=== PATIENT | female | born 1990 | race Caucasian/White ===

== ENCOUNTER → 2017-05-18 15:54 | Outpatient (CLI) | payer OTHER, SELFPAY ==
[2017-05-21 14:11] LABS: HPV Reflexed? NOT INDICATED
== END ==
PROVIDERS: Family Provider Family Medicine; PCP Family Medicine; Visit Provider Obstetrics & Gynecology
DX: Z12.4 Encounter for screening for malignant neoplasm of cervix (principal)
CPT/HCPCS: 88175; G0145

== ENCOUNTER 2017-12-15 00:30 | Emergency (ER) | payer OTHER, SELFPAY ==
[2017-12-15 00:33] VITALS: BP 135/94; PULSE 127; RESP 18; TEMP 36.7; O2SAT 99; BMI 34.7
--- NOTE | 2017-12-15 00:43 | RAD_ITS ---
STUDY: X-RAY - LEFT ANKLE REASON FOR EXAM: Female, 27 years old. Left ankle pain status post fall TECHNIQUE: 3 view(s) of the ankle. COMPARISON: None. FINDINGS: There is a fracture through the medial malleolus with minimal distraction of the fracture fragment. There is also a fracture of the distal fibular diaphysis with minimal posterior displacement and anterior angulation of the distal fracture fragment. Normal medial and lateral malleoli. Normal tibiotalar articulation and ankle mortise. Normal visualized talus and calcaneus. The visualized subtalar, talonavicular, calcaneocuboid and tarsal articulations are normal. The soft tissue structures are unremarkable. RAD/Ankle min 3 Views IMPRESSION: Fractures involving the medial malleolus and the distal fibular diaphysis with surrounding soft tissue swelling. Electronically Signed: Luis Miguel Villareal MD at 2:19 EDT Tel , Service support ,
--- NOTE | 2017-12-15 00:47 | ED.DCSUM_ITS ---
- ER Visit Summary Date of Service: 12/15/17 Chief Complaint: Left ankle injury History of Present Illness: The patient is a 27 F who fell from a barstool and rolled her left ankle approximately hour prior to arrival. Patient states she has not been able to weight-bear since that time. She denies any other injury from the fall. Physical Examination: Vital signs in triage significant only for tachycardia with a heart rate of 127. Patient sitting upright in bed no acute distress. Head neck examination reveals no sign of acute trauma. Heart is regular. Lung sounds clear. Abdomen is soft nontender. Lower external examination reveals tenderness palpation over the lateral malleolus of the left ankle with mild to moderate edema. There is no tenderness over the foot itself. There is no tenderness of the proximal fibula. She has strong distal pulses and good sensation. Test Results: Left ankle x-rays reveal a bimalleolar ankle fracture with mild widening of the medial mortise per my read. Emergency Department Course and Treatment: Patient was initially given Naprosyn and an ice pack. She was placed in a posterior and stirrup Ortho-Glass splint. She will be written for oxycodone and given crutches. She is to remain nonweightbearing and follow-up with orthopedics as soon as possible. Treatment Plan: [] Disposition: Discharge Impression: Left ankle fracture This note was generated with [employer] dictation software. It may contain incorrect words, spelling, and punctuation that were not noted in review of the chart prior to signing ED Disposition - Plan for ED Patient: Chief Complaint: Lower Extremity Injury Referrals: Denis Staples MD [Primary Care Provider] -
[2017-12-15] MEDS: Naproxen 500 MG Tablet PO (00:49)
[2017-12-15] MEDS: oxyCODONE 5 MG Tablet PO ×2 (01:15→01:23)
--- NOTE | 2017-12-15 01:16 | ED.DEP ---
ED Disposition - Plan for ED Patient: Disposition: Home or Assisted Living Chief Complaint: Lower Extremity Injury Instructions: ED Fx Ankle General Prescriptions: Oxycodone HCl/Acetaminophen [Percocet 5/325] 1 tablet PO Q6H PRN PRN 5 Days #20 tablet PRN Reason: Pain Referrals: Ced Robertson MD [STAFF PHYSICIAN] - As soon as possible
== END 2017-12-15 01:25 | disposition home or self-care (01) ==
PROVIDERS: Emergency Provider Emergency Medicine; Family Provider Family Medicine; PCP Family Medicine
DX: S82.842A Displaced bimalleolar fracture of left lower leg, initial encounter for closed fracture (principal); W08.XXXA Fall from other furniture, initial encounter; Y93.9 Activity, unspecified; Y92.89 Other specified places as the place of occurrence of the external cause; Y99.9 Unspecified external cause status
CPT/HCPCS: 29515; 73610; 99284

== ENCOUNTER 2017-12-24 22:19 | Observation (INO) | payer OTHER, SELFPAY ==
[2017-12-24] VITALS (17 sets, daily range): BP systolic 116–147; BP diastolic 54–82; PULSE 106–167; RESP 16–20; TEMP 36.8–38.5; O2SAT 95–99; BMI 35.4; BMI 35.6
[2017-12-24 11:35] LABS: Internal QC Validated? YES +Cl - CLEAR BKGD; Pregnancy, Urine Negative Negative
[2017-12-24] MEDS: Cefazolin 2 GM in 0.9% Normal Saline 100 ML IV (16:41)
--- NOTE | 2017-12-24 17:00 | RAD_ITS ---
STUDY: X-RAY - LEFT ANKLE REASON FOR EXAM: Female, 27 years old. 5 left ankle TECHNIQUE: Single view(s) of the ankle. COMPARISON: None. FINDINGS: Single image was submitted, as radiology support for c-arm imaging in the operating room. This is not a diagnostic examination. Images for documentation purposes only. Fluoroscopy time if reported: RAD/Ankle 2 Views IMPRESSION: Intraoperative fluoroscopic image guidance. Electronically Signed: Ivy Bach MD at 23:53 EST , Service support ,
--- NOTE | 2017-12-24 20:31 | RAD_ITS ---
STUDY: X-RAY CHEST REASON FOR EXAM: Female, 27 years old. Hypoxemia. TECHNIQUE: Portable chest. COMPARISON: 08/11/2012. FINDINGS: Endotracheal tube terminates at the T2 level, 5.8 cm above the mickey. The lungs are clear and expanded. There is no demonstrated pleural abnormality. Normal size heart. Normal mediastinum and dyllan. Normal visualized pulmonary arteries. Normal visualized aortic arch and descending thoracic aorta. Normal visualized thoracic spine. Normal visualized ribs, clavicles, and shoulders. There is no demonstrated abnormality of the visualized soft tissue structures of the upper abdomen. RAD/Chest 1 View (Portable) IMPRESSION: ET tube at the T2 level. No acute process. Electronically Signed: Shell Bunn MD at 21:14 EST Tel , Service support ,
--- NOTE | 2017-12-24 21:37 | PCM.IMDPSTOP ---
Immediate Post-Op Note Date of Procedure: 12/24/17 Primary Surgeon/Physician: Kathryn Kirby DPM auto garage attendant: Kathryn Frazier Pre-Operative Diagnosis: L ankle bimalleolar fracture Post-Operative Diagnosis: same Surgery/Procedure Performed:: L ankle ORIF, L deltoid ligament repair Description of Surgical Findings:: see dictation Estimated Blood Loss: 300mL Specimen's removed: none Drains: none Type of Anesthesia:: General/Regional - Admit VTE Documentation VTE Present on Admission: No VTE Mechan Device Prophylaxis: SCD's, Knee High GERBER Hose VTE Pharm Prophylaxis ordered?: Yes
--- NOTE | 2017-12-24 21:41 | OP.PN_ITS ---
Immediate Post-Op Note Date of Procedure: 12/24/17 Primary Surgeon/Physician: Kathryn Kirby DPM retail sales director: Kathryn Frazier Pre-Operative Diagnosis: L ankle bimalleolar fracture Post-Operative Diagnosis: same Surgery/Procedure Performed:: L ankle ORIF, L deltoid ligament repair Description of Surgical Findings:: see dictation Estimated Blood Loss: 300mL Specimen's removed: none Drains: none Type of Anesthesia:: General/Regional - Admit VTE Documentation VTE Present on Admission: No VTE Mechan Device Prophylaxis: SCD's, Knee High GERBER Hose VTE Pharm Prophylaxis ordered?: Yes
--- NOTE | 2017-12-24 21:44 | DCINST_ITS ---
Discharge Activity: May Not Drive, May not drive while taking narcotic pain medications., May Not Shower, Use Crutches Ice area for (Minutes): 20 - apply ice to behind left knee for 20 minutes of each hour while awake Weight Bearing Status: No weight bearing Keep extremity elevated above heart level: Operative Extremity Call your doctor if your incision/area has: Continuous Slow Oozing, Sudden Increased Bleeding, Increased Pain/ Swelling Call your doctor if you observe: Fever of 101 or Higher, Coldness, Increased Pain, Numbness or Tingling, Shortness of breath, Dizziness, Chest pain, Increased palpitations (irregular heartbeat), Calf discomfort, Uncontrolled pain Cleanse incision/area with: Keep Dressing Clean & Dry Additional Dressing/Incision Instructions:: Keep dressing and posterior splint clean, dry and intact. Allergies/Adverse Reactions: Allergies No Known Allergies Allergy (Verified 12/22/17 11:58) Medications to take at Discharge busPIRone [Buspar] 15 mg PO TID 12/15/17 traZODone [Desyrel] 50 mg PO QHS PRN 12/15/17 Acamprosate Calcium 666 mg PO BID 12/22/17 Hydroxyzine Pamoate [Vistaril] 25 mg PO QHS 12/22/17 Primary Care Physician: Denis Staples MD [Primary Care Provider] - Please follow up with your Primary Care Physician in: 7-10 days after surgery. Test Results: Test results from this visit will be discussed in further detail at your follow- up appointment, if applicable. Please Follow Up With: Kathryn Kirby DPM When: In one week Proposed Discharge Date: 12/24/17
--- NOTE | 2017-12-24 21:50 | RAD_ITS ---
STUDY: X-RAY - LEFT ANKLE REASON FOR EXAM: Female, 27 years old. Postop ankle ORIF TECHNIQUE: 3 view(s) of the ankle. COMPARISON: 12/15/2017. FINDINGS: Internal side plating along the distal fibula spanning the fracture in anatomic alignment with 2 medial and lateral malleolar pins. Question of cortical disruption of the posterior distal tibia. Normal medial and lateral malleoli. Normal tibiotalar articulation and ankle mortise. Normal visualized talus and calcaneus. The visualized subtalar, talonavicular, calcaneocuboid and tarsal articulations are normal. The soft tissue structures are unremarkable. RAD/Ankle min 3 Views IMPRESSION: Near-anatomic alignment of possible trimalleolar fracture status post ORIF. Electronically Signed: Ivy Bach MD at 7:07 EST , Service support ,
[2017-12-24 21:56] LABS: Hematocrit 36.3 % (37-47); Hemoglobin 11.6 g/dl (12.0-15.0); Mean Corpuscular Hgb 29.6 pg (27.0-32.0); Mean Corpuscular Volume 92.6 fL (81-99); Mean Platelet Vol. 8.9 fl (6.2-12.0); Platelet Count 264 K/mm3 (150-450); RBC Distribution Width SD 43.7 fl (35.1-43.9); Red Blood Count 3.92 M/mm3 (4.2-5.4); White Blood Count 10.6 K/mm3 (4.4-11.0)
[2017-12-24 21:58] LABS: Scan Indicated on CBC? Y/N NO
--- NOTE | 2017-12-24 22:24 | EKG12_ITS ---
Test Reason : HIGH HR Blood Pressure : / mmHG Vent. Rate : 152 BPM Atrial Rate : 152 BPM P-R Int : 112 ms QRS Dur : 080 ms QT Int : 336 ms P-R-T Axes : 091 049 030 degrees QTc Int : [address] & T wave abnormality, consider inferior ischemia Abnormal ECG No previous ECGs available Reconfirmed by BRADY NOBLES ([id number]), video editor ROSANNA RAZO ([id number]) on 12/28/2017 2:46:53 PM Referred By: Kathryn Kirby Confirmed By:BRADY NOBLES
[2017-12-24] MEDS: dilTIAZem 25 MG/5 ML Vial 10 MG IV BOLUS (22:41)
--- NOTE | 2017-12-24 22:59 | PCM.HP.STD ---
Problem List (1) Sinus tachycardia Status: Acute (2) Bimalleolar fracture of left ankle Status: Acute History of Present Illness Date of Admission: 12/24/17 Chief Complaint: Sinus tachycardia during surgery and recovery room The patient is a 27 year old F with no significant past medical history was taken to elective surgery for left ankle bimalleolar fracture today. Anesthesiologist Dr. Lewis called me that patient was having sinus tachycardia, the heart rate in 150s during perioperative time and after extubation. Prior to that patient was initially on LMA and dropped pulse ox 78% for which LMA was manipulated and then later on intubated. Patient had 6 puffs of albuterol treatment, phenylephrine 1 mg and fentanyl 200 mcg, propofol and ropivacaine as an anesthetic agent. Patient also had subcutaneous epinephrine 1:1000 for surgery. Patient remains sinus tachycardia in recovery room. I ordered 10 mg IV Cardizem and still sinus tachycardia at 150/min and then decided for admission. Patient denies history of asthma, chronic lung disease or chronic heart disease. EKG shows sinus tachycardia at 152 bpm. The patient denies chest pain or shortness of breath but feels palpitation. Patient is awake and alert and currently 98% on room air. No tachypnea. [] Past Medical History Allergies No Known Allergies Allergy (Verified 12/22/17 11:58) Home Medications: Ambulatory Orders Medication Instructions Recorded busPIRone [Buspar] 15 mg PO TID 12/15/17 traZODone [Desyrel] 50 mg PO QHS PRN 12/15/17 Acamprosate Calcium 666 mg PO BID 12/22/17 Hydroxyzine Pamoate [Vistaril] 25 mg PO QHS 12/22/17 Smoking Status: Never smoker Tobacco Use: Non-smoker - *Family History Sibling History Items: No pertinent history Review of Systems Constitutional: Denies: Chills, Fever, Weight Change HEENT: Denies: Head Aches, Sinus Congestion, Sinus Drainage Cardiovascular: Reports: Palpitations. Denies: Chest Pain, Chest Pressure, Chest Tightness Respiratory: Denies: Cough, Shortness of Breath, Shortness of breath at rest, Shortness of breath upon exertion, Sputum production Gastrointestinal: Denies: Abdominal Pain, Nausea, Vomiting Genitourinary: Denies: Dysuria Musculoskeletal: Denies: Joint Pain, Joint Tenderness Skin: Denies: Rash, Wounds Neurological: Denies: Numbness, Tingling, Focal weakness Psychiatric: Denies: Anxiety, Depression, Homicidal Ideations, Suicidal Ideations Hematologic/ Lymphatic: Denies: Easy Bruising, Easy Bleeding VTE Information - Inpt Only VTE Present on Admission: No VTE Mechan Device Prophylaxis: SCD's VTE Pharm Prophylaxis ordered?: No Patient Problems: Active and Suspected Problems Sinus tachycardia (Acute) Bimalleolar fracture of left ankle (Acute) - Physical Exam General: Alert, Oriented x3, Cooperative HEENT: Atraumatic, PERRLA, EOMI, Normocephalic Neck: Supple, No JVD, Negative Carotid Bruits Lungs: Clear to auscultation, Normal air movement, No rhonchi, No wheeze, No rales Cardiovascular: Normal S1, Normal S2, No murmurs, Tachycardic Abdomen: Bowel Sounds Present, Soft, Non Tender, Non-Distended Extremities: No edema, Capillary Refill Less than 3 Seconds Skin: No rashes, No breakdown Musculoskeletal: Tenderness, - - Left ankle with Augusto wrap bandage after surgery. Neurological: Cranial nerves II-XII grossly intact Psych/Mental Status: Normal Affect, Appropriate Vital Signs Temp Pulse Resp BP Pulse Ox 98.3 F 149 H 18 121/60 H 97 12/24/17 22:43 12/24/17 22:43 12/24/17 22:43 12/24/17 22:43 12/24/17 22:43 Oxygen Flow Rate (L/min) 2 Oxygen Delivery Method Nasal Cannula Weight: 193 lb 9.054 oz Body Mass Index (BMI) 35.4 Intake and Output for Last 24 Hours 12/22/17 12/23/17 12/24/17 23:59 23:59 23:59 Intake Total 2500 / 2500 Balance 2500 / 2500 Laboratory Tests Past 24 Hrs 12/24/17 12/24/17 12/24/17 11:30 21:44 22:44 WBC 10.6 RBC 3.92 L Hgb 11.6 L Hct 36.3 L MCV 92.6 MCH 29.6 MCHC 32.0 RDW 13.0 RDW Differential 43.7 Plt Count 264 MPV 8.9 Troponin I Pending Urine Test Negative Assessment/Plan All Active Problems Sinus tachycardia (Acute) Bimalleolar fracture of left ankle (Acute) The patient is a 27 year old F with no significant past medical history was taken to elective surgery for left ankle bimalleolar fracture today. Anesthesiologist Dr. Lewis called me that patient was having sinus tachycardia, the heart rate in 150s during perioperative time and after extubation. Prior to that patient was initially on LMA and dropped pulse ox 78% for which LMA was manipulated and then later on intubated. Patient had 6 puffs of albuterol treatment, phenylephrine 1 mg and fentanyl 200 mcg, propofol and ropivacaine as an anesthetic agent. Patient also had subcutaneous epinephrine 1:1000 for surgery. Patient remains sinus tachycardia in recovery room. I ordered 10 mg IV Cardizem and still sinus tachycardia at 150/min and then decided for admission. Patient denies history of asthma, chronic lung disease or chronic heart disease. EKG shows sinus tachycardia at 152 bpm. 1. Sinus tachycardia, perioperative. Most rarely secondary to anesthetic agents (phenylephrine, albuterol and subcutaneous epinephrine): The patient is being admitted to PCU. Cardiac telemetry. 5 mg IV metoprolol ordered. Continue metoprolol 25 mg twice daily. Patient heart rate remains elevated will need IV Cardizem drip. Cycle cardiac enzymes. 2. Left ankle bimalleolar fracture: Patient had left ankle ORIF done by Dr. Kirby. She also had left deltoid ligament repair. Pain control. On SCDs. Code Visit OBSV E&M: 90276 Initial observation care L3
[2017-12-24] MEDS: Metoprolol Tartrate 5 MG/5 ML Vial IV (23:24)
[2017-12-24 23:28] LABS: ALB/GLOB Ratio 0.9 RATIO (0.9-2.4); AST(SGOT) 86 U/L (15-37); Alanine Aminotransfer ALT/SGPT 161 U/L (13-56); Albumin, Serum 3.6 g/dL (3.2-5.0); Alkaline Phosphatase 77 U/L (45-117); Anion Gap 17 (5-15); BUN 13 mg/dL (7-18); BUN/Creat Ratio 9.8 RATIO (10-20); Calcium,Total 8.2 mg/dL (8.5-10.1); Chloride 105 mmol/L (98-107); Creatinine, Serum 1.33 mg/dL (0.55-1.02); EST Glomerular Filtration Rate 50 mL/min (>60); Est Glom Filt Rate - Afr Amer 61 mL/min (>60); Estimated Creatinine Clearance 49.81 ml/min; Globulin 3.8 g/dL (2.2-4.2); Glucose 233 mg/dL (74-106); Magnesium 1.7 mg/dL (1.6-2.6); Potassium 3.2 mmol/L (3.5-5.1); Protein, Total 7.4 g/dL (6.4-8.2); Sodium Level 137 mmol/L (136-145)
[2017-12-25] VITALS (14 sets, daily range): BP systolic 109–123; BP diastolic 56–72; PULSE 91–130; RESP 16–18; TEMP 36.8–37.1; O2SAT 95–97
[2017-12-25] MEDS: 0.9% Normal Saline 1,000 ML 150 ML IV ×3 (00:02→11:53)
[2017-12-25] MEDS: hydrOXYzine PAM 25 MG Capsule PO (00:03)
[2017-12-25] MEDS: busPIRone 15 MG TABLET PO ×3 (00:03→14:40)
[2017-12-25] MEDS: Metoprolol Tartrate 50 MG Tablet PO ×2 (00:03→10:17)
[2017-12-25] MEDS: Metoprolol Tartrate 5 MG/5 ML Vial IV ×2 (00:05→00:16)
[2017-12-25] MEDS: Magnesium Oxide 400 MG Tablet PO ×2 (01:26→09:09)
[2017-12-25 01:43] LABS: Bacteria 0 SEEN /hpf (None Seen); Mucous, Urine 0 SEEN /hpf (<or=2+); Red Blood Cells-Urine 0 SEEN /hpf (0-5); White Blood Cells 0 SEEN /hpf (0-5)
[2017-12-25 01:45] LABS: Glucose, Dipstick 100 mg/dl (Normal); Ketone-Dipstick 5 mg/dl (Negative); Leukocyte Esterase-Dipstick Negative /ul (Negative); Nitrite-Dipstick Negative (Negative); Occult Blood-Urine Negative /ul (Negative); Protein-Dipstick Negative (Negative); Urine Bilirubin Dipstick Negative (Negative); Urine Urobilinogen Normal (Normal)
[2017-12-25 01:47] LABS: Color, Urine Straw (Yellow); Urine Clarity Clear (Clear)
[2017-12-25 01:50] LABS: Squamous Epithelial Cells - UA 10-25 SEEN /hpf (5-10)
[2017-12-25 03:06] LABS: Anion Gap 11 (5-15); BUN 10 mg/dL (7-18); BUN/Creat Ratio 9.2 RATIO (10-20); Calcium,Total 8.3 mg/dL (8.5-10.1); Chloride 109 mmol/L (98-107); Creatinine, Serum 1.09 mg/dL (0.55-1.02); EST Glomerular Filtration Rate 63 mL/min (>60); Est Glom Filt Rate - Afr Amer 77 mL/min (>60); Estimated Creatinine Clearance 57.98 ml/min; Glucose 186 mg/dL (74-106); Potassium 4.6 mmol/L (3.5-5.1); Sodium Level 140 mmol/L (136-145)
[2017-12-25] MEDS: oxyCODONE 5 MG Tablet 10 MG PO ×3 (03:56→14:41)
[2017-12-25 05:46] LABS: Hematocrit 34.4 % (37-47); Hemoglobin 11.2 g/dl (12.0-15.0); Mean Corp Hgb Conc 32.6 g/gl (32-36); Mean Corpuscular Hgb 29.8 pg (27.0-32.0); Mean Corpuscular Volume 91.5 fL (81-99); Mean Platelet Vol. 9.4 fl (6.2-12.0); Platelet Count 308 K/mm3 (150-450); RBC Distribution Width CV 12.6 % (11.6-14.6); RBC Distribution Width SD 41.1 fl (35.1-43.9); Red Blood Count 3.76 M/mm3 (4.2-5.4); Scan Indicated on CBC? Y/N NO; White Blood Count 13.6 K/mm3 (4.4-11.0)
[2017-12-25] MEDS: Venlafaxine XR 150 MG Capsule PO (09:09)
--- NOTE | 2017-12-25 13:19 | CT_ITS ---
STUDY: CTA CHEST REASON FOR EXAM: Female, 27 years old. Tachycardia and hypoxia. Recent surgery. RADIATION DOSAGE (If Supplied By Facility): CTDIvol = ( 16.30 ) mGy, DLP = ( 618.95 ) mGycm TECHNIQUE: The examination was performed with the intravenous administration of 75mL ml of Isovue 370 contrast material. Post-processing of the angiographic images was performed, with multiplanar reformation and 3D reconstruction. Individualized dose optimization techniques were used for this CT. COMPARISON: None. FINDINGS: Normal enhancement of the main pulmonary artery and right and left pulmonary arteries. Normal enhancement of the bilateral peripheral pulmonary arteries. There is no demonstrated pulmonary embolism. Normal thoracic aorta and visualized great vessels. There is no demonstrated aortic dissection. Normal heart and pericardium. Normal mediastinum. Normal hilar regions. Normal visualized trachea and bronchi. The lungs are well expanded. Minimal degree of bibasilar dependent atelectasis. Normal pleura. Normal chest wall structures. Normal osseous structures. Normal visualized upper abdomen. CT/CTA Chest W/WO Contrast IMPRESSION: Normal CTA chest examination, without a demonstrated pulmonary embolism or arterial dissection. Electronically Signed: Ray Church MD at 15:00 EST Tel [phone], Service support ,
--- NOTE | 2017-12-25 15:04 | DCINST_ITS ---
- Discharge Diagnoses Current Active Problems: Current Active and Chronic Problems Sinus tachycardia (Acute) Bimalleolar fracture of left ankle (Acute) You will use the following diet at home:: No restrictions Your food should be the consistency of: Regular Your liquids should be the consistency of: Regular/Thin Discharge Activity: May Not Drive, May not drive while taking narcotic pain medications., May Not Shower, Use Crutches Ice area for (Minutes): 20 - apply ice to behind left knee for 20 minutes of each hour while awake Weight Bearing Status: No weight bearing Keep extremity elevated above heart level: Operative Extremity Call your doctor if your incision/area has: Continuous Slow Oozing, Sudden Increased Bleeding, Increased Pain/ Swelling Call your doctor if you observe: Fever of 101 or Higher, Coldness, Increased Pain, Numbness or Tingling, Shortness of breath, Dizziness, Chest pain, Increased palpitations (irregular heartbeat), Calf discomfort, Uncontrolled pain Cleanse incision/area with: Keep Dressing Clean & Dry Additional Dressing/Incision Instructions:: Keep dressing and posterior splint clean, dry and intact. Allergies/Adverse Reactions: Allergies No Known Allergies Allergy (Verified 12/22/17 11:58) Medications to take at Discharge busPIRone [Buspar] 15 mg PO TID 12/15/17 traZODone [Desyrel] 50 mg PO QHS PRN 12/15/17 Acamprosate Calcium 666 mg PO BID 12/22/17 Hydroxyzine Pamoate [Vistaril] 25 mg PO QHS 12/22/17 Venlafaxine XR [Effexor Xr] 150 mg PO DAILY 12/24/17 Metoprolol Tartrate [Lopressor (beta deanna)] 50 mg PO BID #60 tablet 12/25/17 The following prescriptions were given: Metoprolol Tartrate [Lopressor (beta deanna)] 50 mg PO BID #60 tablet Primary Care Physician: Denis Staples MD [Primary Care Provider] - Please follow up with your Primary Care Physician in: 7-10 days after surgery. Test Results: Test results from this visit will be discussed in further detail at your follow- up appointment, if applicable. Please Follow Up With: Kathryn Kirby DPM When: In one week Proposed Discharge Date: 12/24/17
--- NOTE | 2017-12-25 15:09 | DS.PCM_ITS ---
Discharge Date and Diagnosis - Problem List Patient Problems: Active and Suspected Problems Sinus tachycardia (Acute) Bimalleolar fracture of left ankle (Acute) Date of Admission: 12/24/17 Date of Discharge: 12/25/17 - Primary Discharge Diagnosis Active and Suspected Problems Sinus tachycardia (Acute) Bimalleolar fracture of left ankle (Acute) Hospital Course and Treatment Imaging Results: 12/25/17 13:19 CTA Chest W/WO Contrast [CT] Urgent Operations: None Procedures: None Summary of Care Provided: The patient is a 27 year old F who underwent a left ankle ORIF for a Bimalleolar fracture. Perioperatively, she was tachycardic in 150s. She continued to be tachycardic, then the decision was made to admit the patient. In the hospital, she was started on metoprolol 50 BID. HR has improved into the 90s. Patient advised that her HR max will be limited (but she will be limited given her Left ankle surgery anyway). Advised to follow up with her PCP to seen if will need to be continued indefinitely. She did have a CTA chest that was negative for PE.[] Patient Problems: Active and Suspected Problems Sinus tachycardia (Acute) Bimalleolar fracture of left ankle (Acute) - Physical Exam General: Alert, Cooperative, No apparent distress HEENT: Atraumatic, Normocephalic Oral: Moist Mucosa, No Gingival or Mucosal Lesions/ Ulcerations Neck: No Nodes, Thyroid Normal Size and Texture Lungs: Clear to auscultation, Normal air movement, No rhonchi, No wheeze Cardiovascular: Regular rate, Regular Rhythm, Normal S1, Normal S2 Abdomen: Bowel Sounds Present, Soft, Non Tender, Non-Distended Vital Signs Temp Pulse Resp BP Pulse Ox 36.8 C 101 H 16 123/72 H 95 12/25/17 09:14 12/25/17 10:47 12/25/17 09:14 12/25/17 09:14 12/25/17 09:14 Oxygen Flow Rate (L/min) 2 Oxygen Delivery Method Room Air Weight: 87.8 kg Body Mass Index (BMI) 35.6 Intake and Output for Last 24 Hours 12/23/17 12/24/17 12/25/17 23:59 23:59 23:59 Intake Total 2620 / 2620 2497 / 2497 Output Total 400 / 400 2900 / 2900 Balance 2220 / 2220 -403 / -403 Laboratory Tests Past 24 Hrs 12/24/17 12/24/17 12/24/17 21:44 22:44 22:44 WBC 10.6 RBC 3.92 L Hgb 11.6 L Hct 36.3 L MCV 92.6 MCH 29.6 MCHC 32.0 RDW 13.0 RDW Differential 43.7 Plt Count 264 MPV 8.9 Sodium 137 Potassium 3.2 L Chloride 105 Carbon Dioxide 15.0 L Anion Gap 17 H BUN 13 Creatinine 1.33 H Estim Creat Clear Calc 49.81 Est GFR (MDRD) Af Amer 61 Est GFR (MDRD) Non-Af 50 L BUN/Creatinine Ratio 9.8 L Glucose 233 H Calcium 8.2 L Magnesium 1.7 Total Bilirubin 0.50 AST 86 H ALT 161 H Alkaline Phosphatase 77 Troponin I < 0.015 Total Protein 7.4 Albumin 3.6 Globulin 3.8 Albumin/Globulin Ratio 0.9 Urine Color Urine Clarity Urine pH Ur Specific Bradley Urine Protein Urine Glucose (UA) Urine Ketones Urine Occult Blood Urine Nitrite Urine Bilirubin Urine Urobilinogen Ur Leukocyte Esterase Urine RBC Urine WBC Ur Squamous Epith Cells Urine Bacteria Urine Mucus 12/25/17 12/25/17 12/25/17 01:40 02:05 02:05 WBC RBC Hgb Hct MCV MCH MCHC RDW RDW Differential Plt Count MPV Sodium 140 Potassium 4.6 Chloride 109 H Carbon Dioxide 20.0 L Anion Gap 11 BUN 10 Creatinine 1.09 H Estim Creat Clear Calc 57.98 Est GFR (MDRD) Af Amer 77 Est GFR (MDRD) Non-Af 63 BUN/Creatinine Ratio 9.2 L Glucose 186 H Calcium 8.3 L Magnesium Total Bilirubin AST ALT Alkaline Phosphatase Troponin I < 0.015 Total Protein Albumin Globulin Albumin/Globulin Ratio Urine Color Straw Urine Clarity Clear Urine pH 6.0 Ur Specific Bradley 1.010 Urine Protein Negative Urine Glucose (UA) 100 H Urine Ketones 5 H Urine Occult Blood Negative Urine Nitrite Negative Urine Bilirubin Negative Urine Urobilinogen Normal Ur Leukocyte Esterase Negative Urine RBC 0 SEEN Urine WBC 0 SEEN Ur Squamous Epith Cells 10-25 SEEN Urine Bacteria 0 SEEN Urine Mucus 0 SEEN 12/25/17 12/25/17 04:44 04:44 WBC 13.6 H RBC 3.76 L Hgb 11.2 L Hct 34.4 L MCV 91.5 MCH 29.8 MCHC 32.6 RDW 12.6 RDW Differential 41.1 Plt Count 308 MPV 9.4 Sodium Potassium Chloride Carbon Dioxide Anion Gap BUN Creatinine Estim Creat Clear Calc Est GFR (MDRD) Af Amer Est GFR (MDRD) Non-Af BUN/Creatinine Ratio Glucose Calcium Magnesium Total Bilirubin AST ALT Alkaline Phosphatase Troponin I < 0.015 Total Protein Albumin Globulin Albumin/Globulin Ratio Urine Color Urine Clarity Urine pH Ur Specific Bradley Urine Protein Urine Glucose (UA) Urine Ketones Urine Occult Blood Urine Nitrite Urine Bilirubin Urine Urobilinogen Ur Leukocyte Esterase Urine RBC Urine WBC Ur Squamous Epith Cells Urine Bacteria Urine Mucus Discharge Diet: No Restrictions Discharge Activity: May Not Drive, May not drive while taking narcotic pain medications., May Not Shower, Use Crutches Ice area for (Minutes): 20 - apply ice to behind left knee for 20 minutes of each hour while awake Weight Bearing Status: No weight bearing Keep extremity elevated above heart level: Operative Extremity Call your doctor if your incision/area has: Continuous Slow Oozing, Sudden Increased Bleeding, Increased Pain/ Swelling Call your doctor if you observe: Fever of 101 or Higher, Coldness, Increased Pain, Numbness or Tingling, Shortness of breath, Dizziness, Chest pain, Increased palpitations (irregular heartbeat), Calf discomfort, Uncontrolled pain Cleanse incision/area with: Keep Dressing Clean & Dry Additional Dressing/Incision Instructions:: Keep dressing and posterior splint clean, dry and intact. Home Medications: Medications to take at Discharge busPIRone [Buspar] 15 mg PO TID 12/15/17 traZODone [Desyrel] 50 mg PO QHS PRN 12/15/17 Acamprosate Calcium 666 mg PO BID 12/22/17 Hydroxyzine Pamoate [Vistaril] 25 mg PO QHS 12/22/17 Venlafaxine XR [Effexor Xr] 150 mg PO DAILY 12/24/17 Metoprolol Tartrate [Lopressor (beta deanna)] 50 mg PO BID #60 tablet 12/25/17 Following Prescrptions Were Given to Patient: Metoprolol Tartrate [Lopressor (beta deanna)] 50 mg PO BID #60 tablet Primary Care Physician: Denis Staples MD [Primary Care Provider] - Please follow up with your Primary Care Physician in: 7-10 days after surgery. Please Follow Up With: Kathryn Kirby DPM When: In one week Disposition: Home Minutes spent on discharge:: 32 Patient Condition:: Good Medical Necessity - Tobacco Use Smoking Status: Never smoker Tobacco Use: Non-smoker Meaningful Use Info Meaningful Use Diagnoses (Choose all that apply): None applicable Code Visit OBSV E&M: 88493 Observation care discharge
--- NOTE | 2017-12-27 15:45 | OP.PCM_ITS ---
Report of Operation Date of Procedure: 12/24/17 Pre-Operative Diagnosis: L ankle bimalleolar fracture Post-Operative Diagnosis: same Surgery/Procedure Performed:: L ankle ORIF, L deltoid ligament repair Description of Surgical Findings:: see dictation pharmacognosist: Kathryn Frazier Type of Anesthesia:: General/Regional Specimen's removed: none Drains: none Estimated Blood Loss (mL): 300mL Description of Procedure: Indications: Pt is a 27 yo F who presented to my clinic last after sustaining a L bimalleolar ankle fracture. She was seen in the local ER and referred to me. She has been in a compressive dressing with a posterior splint and was instructed to be strict NWB LLE. Her posterior splint is noted to be dirty on the bottom today but intact. Pt presents for surgical intervention today. All risks, complications, and alternatives were discussed with the patient, and the patient signed an informed consent. No guarantees were given. Procedure: On 12/24/2017 Anneliese Mchugh was visually and verbally identified prior to surgery. The consent form was again reviewed with the patient, as were all risks, complications, and alternatives and the patient wished to proceed with the proposed surgery. The left ankle was marked as the correct operative extremity.The patient received a lower sciatic block to the LLE by anesthesia pre-operatively. The patient was brought to the operating room and placed on the operating room table in a lazy lateral position. Anesthesia initially planned for an LMA, however, they found she was tachycardic and not satting well with the LMA. The decision was made to convert her to an ET tube during sterile preparation of the LLE. There was some difficulty with this as she remained tachycardic and her saturation was slower to resolve than anticipated. She did however become stable. Anesthesia felt she was stable to proceed with surgery as I stated we could postpone the case if they felt she needed further evaluation. They did not and again stated we were safe to proceed. A thigh tourniquet had been placed and the left lower extremity was the prepped again and draped in the usual sterile fashion. A time out was performed and all present were in agreement. after exsanguination with an esmarch the tourniquet was inflated to 300 mmHg. At this time attention was directed to the Left lateral ankle where the fibular fracture was again confirmed on intraoperative fluoroscopy and using a #25 blade a longitudinal incision was made over the fracture site. The incision was bluntly carried deep through the subcutaneous tissues with careful attention paid to all bleeders, which were clamped and tied or bovied as necessary. All vital neurovascular structures were retracted. The peroneal tendons were retracted. The fracture line of the fibula was directly visualized and noted to be comminuted with a large fracture fragment in the anteromedial fibula proximal to the ankle joint. As a result of the fracture pattern an interfrag screw could no be placed perpendicular to the main fracture line. Using bone clamps the main f racture line was reduced which was confirmed by direct visualization and intra operative fluoroscopy. The fibula was noted to be out to length. The bone fragment was stabilized using a temporary k wire. A OrthAlign Variax plate was then placed with locking and nonlocking screws. 2 0.045 k wires were then used to stabilize the bone fragment and the temporary k wires were removed. The permanent k wires were bent with the ends buried and noted to not extend posteriorly into the peroneals. The bone reduction clamp was removed and the fracture reduction was maintained as visualized directly and on intra operative fluoroscopy. Attention was then directed to the medial malleolus. The fracture appeared to be incomplete but with the fragment displaced and in the medial gutter. An attempt to reduce the fracture using a k wire percutaneously was made but did not produce satisfactory reduction. I then made a linear excision over the medial malleolus extending distally. The superficial deltoid appeared disrupted and the fracture fragment was noted to be displaced and rotated. using k wires and bone reduction clamps the fracture fragment was reduced with near anatomical alignment of the articular portion. This was confirmed by direct visualization and intra operative fluoroscopy. The fragment however did not alignment completely in the anterior fracture line with this reduction. It was noted that the fracture fragment was too small for screw fixation so the reduction was maintained with the threaded k wires used for reduction. Given the damaged nature of the superficial deltoids a direct, primary repair was done with 2.0 vicryl in an over and over fashion. Copious amounts of normal sterile saline were then used to flush both incisions. A bone hook test was used to confirm the stability of the medial clear space and syndesmosis. Vitoss was then packed into both the fracture line of the medial malleolus and the fibula. Closure was then initiated with 2.0 vicryl for deep tissues, 3.0 vicryl for subcutaneous and 3.0 prolene for skin. Adaptic and DSD were then applied to the incisions. A multilayer compressive dressing and well padded posterior splint were then applied. Total tourniquet time was 120 minutes with immediate capillary refill noted to all digits upon deflation. Anesthesia requested that an intra operative chest film be done prior to extubation to confirm she had not had flash pulmonary edema. The anesthesiologist personally reviewed this and felt she was safe to extubate. Extubation was uneventful. Intra operative fluoroscopy was utilized throughout the case, > 1 hour, to aid in visualization and confirmation of fracture reduction and screw and plate fixations. Interpretation of the images was vital to my decision making process. The patient tolerated the procedure and anesthesia well after the ET tube was placed. The patient was then transported to the postanesthesia care unit by a member of the anesthesia team and myself. She had persistent tachycardia to the 150s in the perioperative setting. She was coherent and interactive in the PACU. Anesthesia advised that she be admitted to the hospitalist service for further monitoring and evaluation. This was discussed with the patient and her family and all were in agreement this was in her best interest. Hospitalist came to see her in the PACU where he ordered additional labs and an EKG. At the end of the case all sponge, needle and instrument counts were found to be correct. Pt will follow up with me in one week and I strongly recommended she see her PCP within 7-10 days to discuss the events of today. I also discussed with her and her family that she cannot bear weight as she had on the previous posterior splint as her fracture was comminuted and she needs to be strictly NWB LLE for the best chance of healing well. They understood and agreed. Grafts/Implants Used: [place] Variax plate, screws, k wires, Vitoss bone substitute - Complications none - Admit VTE Documentation VTE Present on Admission: No VTE Mechan Device Prophylaxis: SCD's, Knee High GERBER Hose VTE Pharm Prophylaxis ordered?: Yes
== END 2017-12-25 15:04 | disposition home or self-care (01) ==
LOC: PCU 23:00 → SDC 23:00
PROVIDERS: Anesthesiology; Admitting Provider Internal Medicine; Family Provider Family Medicine; PCP Family Medicine; Referring Provider Podiatrist Foot & Ankle Surgery
PROC: (CPT 27814; principal; 2017-12-24 12:55)
DX: S82.842A Displaced bimalleolar fracture of left lower leg, initial encounter for closed fracture (principal); W07.XXXA Fall from chair, initial encounter; Y93.89 Activity, other specified; Y92.9 Unspecified place or not applicable; Y99.9 Unspecified external cause status; F41.9 Anxiety disorder, unspecified; F32.9 Major depressive disorder, single episode, unspecified; R00.0 Tachycardia, unspecified; Z79.899 Other long term (current) drug therapy
CPT/HCPCS: 27814; 64445; 36415; 71045; 71275; 73600; 73610; 76000; 80048; 80053; 81001; 81025; 83735; 84484; 85027; 93005; 96361; 96374; 96376; 99218; C1713; J7030; J7120; Q9967; G0378; G0379; J2405

== ENCOUNTER → 2018-02-25 13:07 | Outpatient (CLI) | payer OTHER, SELFPAY ==
[2018-02-25 15:34] LABS: Absolute Lymphocyte Count 1.94 X10^3/ul (0.83-4.51); Absolute Neutrophil Count 5.1 X10^3/uL (2.0-7.7); Basophil# 0.03 X10^3/uL; Basophil% 0.4 % (0-1); Eosinophil# 0.26 X10^3/uL; Eosinophils% 3.2 % (0-5); Hematocrit 36.4 % (37-47); Hemoglobin 11.8 g/dl (12.0-15.0); Lymphocyte # 1.94 X10^3/ul (4.0); Lymphocyte % 23.7 % (19-41); Mean Corp Hgb Conc 32.4 g/gl (32-36); Mean Corpuscular Hgb 28.5 pg (27.0-32.0); Mean Corpuscular Volume 87.9 fL (81-99); Mean Platelet Vol. 9.4 fl (6.2-12.0); Monocyte# 0.85 X10^3/uL; Monocyte% 10.4 % (0-10); Neutrophil # 5.08 X10^3/uL (2.7-7.7); Neutrophil % 62.1 % (47-70); Platelet Count 336 K/mm3 (150-450); RBC Distribution Width CV 13.1 % (11.6-14.6); RBC Distribution Width SD 42.2 fl (35.1-43.9); Red Blood Count 4.14 M/mm3 (4.2-5.4); White Blood Count 8.2 K/mm3 (4.4-11.0)
[2018-02-25 15:40] LABS: POSITIVE COUNT NO; POSITIVE DIFFERENTIAL NO; POSITIVE MORPHOLOGY NO
[2018-02-25 15:54] LABS: ALB/GLOB Ratio 0.8 RATIO (0.9-2.4); AST(SGOT) 39 U/L (15-37); Alanine Aminotransfer ALT/SGPT 75 U/L (13-56); Albumin, Serum 3.9 g/dL (3.2-5.0); Alkaline Phosphatase 97 U/L (45-117); Amylase 56 U/L (25-115); Anion Gap 10 (5-15); BUN 9 mg/dL (7-18); BUN/Creat Ratio 11.6 RATIO (10-20); Calcium,Total 9.3 mg/dL (8.5-10.1); Chloride 103 mmol/L (98-107); Creatinine, Serum 0.77 mg/dL (0.55-1.02); EST Glomerular Filtration Rate 94 mL/min (>60); Est Glom Filt Rate - Afr Amer 114 mL/min (>60); Globulin 4.7 g/dL (2.2-4.2); Glucose 98 mg/dL (74-106); Lipase 247 U/L (73-393); Potassium 3.6 mmol/L (3.5-5.1); Protein, Total 8.6 g/dL (6.4-8.2); Sodium Level 139 mmol/L (136-145)
== END ==
PROVIDERS: Family Provider Family Medicine; PCP Family Medicine; Visit Provider Family Medicine
DX: R10.13 Epigastric pain (principal); F10.10 Alcohol abuse, uncomplicated
CPT/HCPCS: 36415; 80053; 82150; 83690; 85025

== ENCOUNTER → 2018-06-17 15:51 | Outpatient (CLI) | payer OTHER, SELFPAY ==
[2017-12-24 23:10] VITALS: BMI 35.6
[2018-06-22 16:50] LABS: HPV Reflexed? NOT INDICATED
== END ==
PROVIDERS: Family Provider Family Medicine; PCP Family Medicine; Referring Provider Obstetrics & Gynecology; Visit Provider Obstetrics & Gynecology
DX: Z12.4 Encounter for screening for malignant neoplasm of cervix (principal)
CPT/HCPCS: 88175; G0145

== ENCOUNTER → 2018-11-12 09:24 | Outpatient (CLI) | payer OTHER, SELFPAY ==
[2018-11-12 12:23] LABS: Absolute Lymphocyte Count 2.19 X10^3/uL (0.83-4.51); Basophil# 0.05 X10^3/uL; Basophil% 1.1 % (0-1); Eosinophils% 2.1 % (0-5); Hematocrit 41.7 % (37-47); Hemoglobin 13.6 g/dL (12.0-15.0); Lymphocyte # 2.19 X10^3/ul (4.0); Mean Corp Hgb Conc 32.6 g/dL (32-36); Mean Corpuscular Hgb 30.2 pg (27.0-32.0); Mean Corpuscular Volume 92.5 fL (81-99); Mean Platelet Vol. 9.2 fl (6.2-12.0); Monocyte# 0.28 X10^3/uL; NRBC Flagged by Analyzer 0 % (0-5); Neutrophil # 2.03 X10^3/uL (2.7-7.7); Neutrophil % 43.6 % (47-70); Platelet Count 308 K/mm3 (150-450); RBC Distribution Width CV 12.6 % (11.6-14.6); RBC Distribution Width SD 43.3 fl (35.1-43.9); Red Blood Count 4.51 M/mm3 (4.2-5.4); White Blood Count 4.7 K/mm3 (4.4-11.0)
[2018-11-12 13:03] LABS: ALB/GLOB Ratio 0.9 RATIO (0.9-2.4); AST(SGOT) 76 U/L (15-37); Alanine Aminotransfer ALT/SGPT 146 U/L (13-56); Alkaline Phosphatase 90 U/L (45-117); Anion Gap 11 (5-15); BUN 12 mg/dL (7-18); BUN/Creat Ratio 15.5 RATIO (10-20); Calcium,Total 8.6 mg/dL (8.5-10.1); Chloride 108 mmol/L (98-107); Creatinine, Serum 0.77 mg/dL (0.55-1.02); EST Glomerular Filtration Rate 94 mL/min (>60); Est Glom Filt Rate - Afr Amer 113 mL/min (>60); Globulin 4.4 g/dL (2.2-4.2); Glucose 91 mg/dL (74-106); Potassium 3.9 mmol/L (3.5-5.1); Protein, Total 8.4 g/dL (6.4-8.2); Sodium Level 144 mmol/L (136-145); T4 Free Direct 0.91 ng/dL (0.76-1.46); Thyroid Stim Hormone (TSH) 0.91 uIU/mL (0.358-3.74)
== END ==
PROVIDERS: Family Provider Family Medicine; PCP Family Medicine; Visit Provider Family Medicine
DX: E78.5 Hyperlipidemia, unspecified (principal); R73.01 Impaired fasting glucose; R00.0 Tachycardia, unspecified; F10.10 Alcohol abuse, uncomplicated
CPT/HCPCS: 36415; 80053; 84439; 84443; 85025

== ENCOUNTER → 2019-01-20 16:21 | Outpatient (CLI) | payer OTHER, SELFPAY ==
[2017-12-24 23:10] VITALS: BMI 35.6
[2019-01-20 17:00] LABS: Absolute Lymphocyte Count 2.58 X10^3/uL (0.83-4.51); Absolute Neutrophil Count 5.8 X10^3/uL (2.0-7.7); Basophil# 0.03 X10^3/uL; Basophil% 0.3 % (0-1); Eosinophil# 0.09 X10^3/uL; Hematocrit 40.9 % (37-47); Hemoglobin 13.9 g/dL (12.0-15.0); Lymphocyte # 2.58 X10^3/ul (4.0); Lymphocyte % 27.4 % (19-41); Mean Corpuscular Hgb 30.4 pg (27.0-32.0); Mean Corpuscular Volume 89.5 fL (81-99); Monocyte% 9.6 % (0-10); NRBC Flagged by Analyzer 0 % (0-5); Neutrophil # 5.78 X10^3/uL (2.7-7.7); Neutrophil % 61.4 % (47-70); Platelet Count 309 K/mm3 (150-450); RBC Distribution Width CV 11.8 % (11.6-14.6); RBC Distribution Width SD 38.3 fl (35.1-43.9); Red Blood Count 4.57 M/mm3 (4.2-5.4); White Blood Count 9.4 K/mm3 (4.4-11.0)
[2019-01-20 17:07] LABS: Color, Urine Yellow (Yellow); Glucose, Dipstick Normal (Normal); Ketone-Dipstick 5 mg/dl (Negative); Leukocyte Esterase-Dipstick Negative /ul (Negative); Nitrite-Dipstick Negative (Negative); Occult Blood-Urine Negative /ul (Negative); Protein-Dipstick Negative (Negative); Urine Bilirubin Dipstick Negative (Negative); Urine Clarity Sl. Cloudy (Clear); Urine Urobilinogen Normal (Normal)
[2019-01-20 17:40] LABS: Thyroid Stim Hormone (TSH) 2.24 uIU/mL (0.358-3.74)
[2019-01-20 17:42] LABS: Amphetamine Urine VISTA NEGATIVE (<1000 ng/mL); Barbiturate Urine VISTA NEGATIVE (< 200 ng/mL); Benzodiazepine Urine VISTA NEGATIVE (< 200 ng/mL); Cocaine Urine VISTA NEGATIVE (< 300 ng/mL); Ecstacy Urine VISTA NEGATIVE (< 500 ng/mL); Methadone Urine VISTA NEGATIVE (< 300 ng/mL); PCP Urine VISTA NEGATIVE (< 25 ng/mL); THC Urine VISTA NEGATIVE (< 50 ng/mL); Vista UDS pH Range 5
[2019-01-21 09:34] LABS: HIV - WCH Non-Reactive (Nonreactive); Hepatitis B Surface Antigen Non-Reactive (Nonreactive); Hepatitis C Antibody Non-Reactive (Nonreactive); Rubella IgG 185.6 IU/mL
[2019-01-27 01:49] LABS: Prenatal RPR NONREACTIVE (NONREACTIVE)
== END ==
LOC: WOBLAB 16:22
PROVIDERS: Family Provider Family Medicine; PCP Family Medicine; Visit Provider Obstetrics & Gynecology
DX: Z34.81 Encounter for supervision of other normal pregnancy, first trimester (principal)
CPT/HCPCS: 36415; 80307; 81002; 84443; 85025; 86703; 86762; 86803; 87340

== ENCOUNTER → 2019-06-01 18:43 | Outpatient (CLI) | payer MEDICAID, SELFPAY ==
[2017-12-24 23:10] VITALS: BMI 35.6
[2019-06-01 18:49] LABS: Hematocrit 39.3 % (37-47); Hemoglobin 12.6 g/dL (12.0-15.0); Mean Corp Hgb Conc 32.1 g/dL (32-36); Mean Corpuscular Hgb 26.5 pg (27.0-32.0); Mean Corpuscular Volume 82.7 fL (81-99); Mean Platelet Vol. 9.7 fl (6.2-12.0); Platelet Count 309 K/mm3 (150-450); RBC Distribution Width CV 13.7 % (11.6-14.6); RBC Distribution Width SD 41.1 fl (35.1-43.9); Red Blood Count 4.75 M/mm3 (4.2-5.4); White Blood Count 8.6 K/mm3 (4.4-11.0)
[2019-06-01 18:55] LABS: Glucose Challenge Gest 1H 50g 110 mg/dL (70-140)
== END ==
PROVIDERS: Referring Provider Obstetrics & Gynecology; Visit Provider Obstetrics & Gynecology
DX: Z34.83 Encounter for supervision of other normal pregnancy, third trimester (principal)
CPT/HCPCS: 82950; 85027

== ENCOUNTER → 2019-07-27 | Outpatient (CLI) | payer MEDICAID, SELFPAY ==
[2017-12-24 23:10] VITALS: BMI 35.6
== END | disposition home or self-care (01) ==
LOC: LABSPEC 14:36
PROVIDERS: Visit Provider Obstetrics & Gynecology
DX: Z36.85 Encounter for antenatal screening for Streptococcus B (principal)
CPT/HCPCS: 87081

== ENCOUNTER 2019-08-15 18:50 | Observation (INO) | payer MEDICAID, SELFPAY ==
[2017-12-24 23:10] VITALS: BMI 35.6
[2019-08-15] VITALS (8 sets, daily range): BP systolic 121–138; BP diastolic 79–86; PULSE 90–104; TEMP 36.5–37.3; O2SAT 96–99; BMI 37.4
[2019-08-15 20:14] LABS: Absolute Lymphocyte Count 1.58 X10^3/uL (0.83-4.51); Absolute Neutrophil Count 8.8 X10^3/uL (2.0-7.7); Basophil# 0.04 X10^3/uL; Basophil% 0.4 % (0-1); Eosinophil# 0.11 X10^3/uL; Lymphocyte # 1.58 X10^3/ul (4.0); Lymphocyte % 13.9 % (19-41); Mean Corp Hgb Conc 31.7 g/dL (32-36); Mean Platelet Vol. 10.4 fl (6.2-12.0); Monocyte# 0.78 X10^3/uL; Monocyte% 6.9 % (0-10); NRBC Flagged by Analyzer 0 % (0-5); Neutrophil # 8.79 X10^3/uL (2.7-7.7); Neutrophil % 77.2 % (47-70); Platelet Count 255 K/mm3 (150-450); RBC Distribution Width SD 44.1 fl (35.1-43.9); White Blood Count 11.4 K/mm3 (4.4-11.0)
[2019-08-15] MEDS: Lactated Ringers 500 ML 999 ML IV (20:58)
[2019-08-15] MEDS: Oxytocin 30 units/NS 500 ml 30 UNITS/500 ML IV.SOLN IV (21:25)
[2019-08-15] MEDS: Lactated Ringers 1,000 ML 50 ML IV (21:30)
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
[2019-08-16] VITALS (32 sets, daily range): BP systolic 114–140; BP diastolic 62–87; PULSE 80–189; RESP 16; TEMP 36.2–37.3; O2SAT 82–98
[2019-08-16] MEDS: Acetaminophen 325 MG Tablet PO (02:38)
--- NOTE | 2019-08-16 12:50 | PN.OBGYN_ITS ---
Patient Problems: Active and Suspected Problems 39 weeks gestation of (Acute) Subjective: Feeling contractions every couple of minutes rating pain a 2/10. Objective: SVE unchanged ft/25/-3 soft midposition, UC Q2-5m - Physical Exam Vitals/I&O's: Vital Signs Temp Pulse BP Pulse Ox 98.5 F 96 123/66 H 98 08/16/19 17:19 08/16/19 17:19 08/16/19 17:19 08/16/19 17:19 Weight: 92.896 kg Body Mass Index (BMI) 37.4 Intake and Output for Last 24 Hours 08/14/19 08/15/19 08/16/19 23:59 23:59 23:59 Intake Total 800 / 800 1524.83 / 1524.83 Output Total 450 / 450 1400 / 1400 Balance 350 / 350 124.83 / 124.83 General: Alert, Oriented x3, Cooperative HEENT: Atraumatic, PERRLA, EOMI, Normocephalic Neck: Supple, No JVD, Negative Carotid Bruits Lungs: Clear to auscultation, Normal air movement Cardiovascular: Regular rate, No murmurs Abdomen: Bowel Sounds Present, Soft, Non Tender Extremities: No edema, Capillary Refill Less than 3 Seconds Skin: No rashes, No breakdown Musculoskeletal: No Tenderness to Palpation of Joints or Extremities Neurological: Cranial nerves II-XII grossly intact Psych/Mental Status: Normal Affect, Appropriate Laboratory Results 08/15/19 19:42: WBC 11.4 H, RBC 5.00, Hgb 13.0, Hct 41.0, MCV 82.0, MCH 26.0 L, MCHC 31.7 L, RDW Std Deviation 44.1 H, RDW Coeff of Shadi 15.0 H, Plt Count 255, MPV 10.4, Immature Gran % (Auto) 0.600, Neut % (Auto) 77.2 H, Lymph % (Auto) 13.9 L, [place] % (Auto) 6.9, Eos % (Auto) 1.0, Baso % (Auto) 0.4, Absolute Neuts (auto) 8.8 H, Absolute Lymphs (auto) 1.58, Nucleated RBC % 0 08/15/19 19:42: Blood Type A POSITIVE, Antibody Screen NEGATIVE Current Medications Acetaminophen (Tylenol) 325 - 650 mg PO Q4H PRN PRN PRN Reason: Pain Score 1-3/10 Last Admin: 08/16/19 02:38 Dose: 650 mg Documented by: Al Hydroxide/Mg Hydroxide (Mylanta Ii) 15 - 30 ml PO Q4H PRN PRN PRN Reason: INDIGESTION Citric Acid/Sodium Citrate (Bicitra) 30 ml PO X1 PRN PRN Reason: Section Fentanyl Citrate (Sublimaze (100mcg Ampule)) 25 - 50 mcg IV Q2H PRN PRN PRN Reason: Pain Score 4-10/10 Lactated Ringer's () 500 mls @ 999 mls/hr IV .Q31M PRN PRN Reason: Epidural Lactated Ringer's () 500 mls @ 999 mls/hr IV .Q31M PRN PRN Reason: Corrective Measures Last Infusion: 08/15/19 21:29 Dose: Infused Documented by: Lactated Ringer's () 1,000 mls @ 50 mls/hr IV .Q20H [facility] Last Admin: 08/16/19 17:42 Dose: Not Given Documented by: Oxytocin/Sodium Chloride () 30 units in 500 mls @ 2 mls/hr IV .Q250H SANDI Last Infusion: 08/16/19 17:22 Dose: Infused Documented by: Ondansetron HCl (Zofran) 4 mg IV Q4H PRN PRN PRN Reason: NAUSEA Prochlorperazine Edisylate (Compazine Iv) 10 mg IV Q6H PRN PRN PRN Reason: NAUSEA Sodium Chloride () 10 - 40 ml IV X1 PRN PRN Reason: SALINE FLUSH Last Admin: 08/16/19 17:41 Dose: 10 ml Documented by: Medical Necessity - Tobacco Use Smoking Status: Never smoker Assessment/Plan All Active Problems Sinus tachycardia (Acute) Bimalleolar fracture of left ankle (Acute) 39 weeks gestation of (Acute) A/P: Pitocin at 18u Category I NST Unchanged cervix with irregular contraction pattern With shared decision making will turn off Pitocin for 1hour to reset receptors To restart Pitocin and SVE 2 hours later POC discussed with attending Dr. Mac
[2019-08-16] MEDS: 0.9% Saline Lock 10 ML Syringe IV (17:41)
--- NOTE | 2019-08-16 18:17 | PN.OBGYN_ITS ---
Patient Problems: Active and Suspected Problems 39 weeks gestation of (Acute) Subjective: When having contractions pain is 4/10, but still comfortable Objective: SVE unchanged ft/25/-3 soft midposition FHR baseline 135, +accels, -decels, moderate variability UC Q2-5m - Physical Exam Vitals/I&O's: Vital Signs Temp Pulse BP Pulse Ox 98.5 F 96 123/66 H 98 08/16/19 17:19 08/16/19 17:19 08/16/19 17:19 08/16/19 17:19 Weight: 92.896 kg Body Mass Index (BMI) 37.4 Intake and Output for Last 24 Hours 08/14/19 08/15/19 08/16/19 23:59 23:59 23:59 Intake Total 800 / 800 1524.83 / 1524.83 Output Total 450 / 450 1400 / 1400 Balance 350 / 350 124.83 / 124.83 General: Alert, Oriented x3, Cooperative HEENT: Atraumatic, PERRLA, EOMI, Normocephalic Neck: Supple, No JVD, Negative Carotid Bruits Lungs: Clear to auscultation, Normal air movement Cardiovascular: Regular rate, No murmurs Abdomen: Bowel Sounds Present, Soft, Non Tender Extremities: No edema, Capillary Refill Less than 3 Seconds Skin: No rashes, No breakdown Musculoskeletal: No Tenderness to Palpation of Joints or Extremities Neurological: Cranial nerves II-XII grossly intact Psych/Mental Status: Normal Affect, Appropriate Laboratory Results 08/15/19 19:42: WBC 11.4 H, RBC 5.00, Hgb 13.0, Hct 41.0, MCV 82.0, MCH 26.0 L, MCHC 31.7 L, RDW Std Deviation 44.1 H, RDW Coeff of Shadi 15.0 H, Plt Count 255, MPV 10.4, Immature Gran % (Auto) 0.600, Neut % (Auto) 77.2 H, Lymph % (Auto) 13.9 L, [place] % (Auto) 6.9, Eos % (Auto) 1.0, Baso % (Auto) 0.4, Absolute Neuts (auto) 8.8 H, Absolute Lymphs (auto) 1.58, Nucleated RBC % 0 08/15/19 19:42: Blood Type A POSITIVE, Antibody Screen NEGATIVE Current Medications Acetaminophen (Tylenol) 325 - 650 mg PO Q4H PRN PRN PRN Reason: Pain Score 1-3/10 Last Admin: 08/16/19 02:38 Dose: 650 mg Documented by: Al Hydroxide/Mg Hydroxide (Mylanta Ii) 15 - 30 ml PO Q4H PRN PRN PRN Reason: INDIGESTION Citric Acid/Sodium Citrate (Bicitra) 30 ml PO X1 PRN PRN Reason: Section Fentanyl Citrate (Sublimaze (100mcg Ampule)) 25 - 50 mcg IV Q2H PRN PRN PRN Reason: Pain Score 4-10/10 Lactated Ringer's () 500 mls @ 999 mls/hr IV .Q31M PRN PRN Reason: Epidural Lactated Ringer's () 500 mls @ 999 mls/hr IV .Q31M PRN PRN Reason: Corrective Measures Last Infusion: 08/15/19 21:29 Dose: Infused Documented by: Lactated Ringer's () 1,000 mls @ 50 mls/hr IV .Q20H [facility] Last Admin: 08/16/19 17:42 Dose: Not Given Documented by: Oxytocin/Sodium Chloride () 30 units in 500 mls @ 2 mls/hr IV .Q250H SANDI Last Infusion: 08/16/19 17:22 Dose: Infused Documented by: Ondansetron HCl (Zofran) 4 mg IV Q4H PRN PRN PRN Reason: NAUSEA Prochlorperazine Edisylate (Compazine Iv) 10 mg IV Q6H PRN PRN PRN Reason: NAUSEA Sodium Chloride () 10 - 40 ml IV X1 PRN PRN Reason: SALINE FLUSH Last Admin: 08/16/19 17:41 Dose: 10 ml Documented by: Medical Necessity - Tobacco Use Smoking Status: Never smoker Assessment/Plan All Active Problems Sinus tachycardia (Acute) Bimalleolar fracture of left ankle (Acute) 39 weeks gestation of (Acute) A/P: Pitocin has been back on for >2 hours SVE unchanged NST Category I Decision to discharge home made with patient Will have NST in OB office tomorrow with PNV after. Will discuss IOL with Cytotec in a couple of days vs allowing body to go into labor on its own Dr. Mac, attending, updated on POC
== END 2019-08-16 18:36 | disposition home or self-care (01) ==
PROVIDERS: Obstetrics & Gynecology; Admitting Provider Obstetrics & Gynecology; Visit Provider Obstetrics & Gynecology
DX: O61.0 Failed medical induction of labor (principal); Z3A.39 39 weeks gestation of pregnancy
CPT/HCPCS: 96361; 96365; 96366 ×2; 59025; 59050; 85025; 86850; 86900; 86901; J7120; A4216

== ENCOUNTER 2019-08-29 18:50 | Inpatient (IN) | payer MEDICAID, SELFPAY ==
[2019-08-15 19:44] VITALS: BMI 37.4
[2019-08-29] VITALS (10 sets, daily range): BP systolic 111–136; BP diastolic 66–68; PULSE 94–113; TEMP 36.9–37.4; O2SAT 97; BMI 38.0
[2019-08-29] MEDS: Lactated Ringers 1,000 ML 50 ML IV (19:40)
[2019-08-29 20:04] LABS: Absolute Neutrophil Count 8.1 X10^3/uL (2.0-7.7); Basophil# 0.03 X10^3/uL; Basophil% 0.3 % (0-1); Eosinophil# 0.15 X10^3/uL; Eosinophils% 1.4 % (0-5); Hematocrit 40.5 % (37-47); Hemoglobin 13.2 g/dL (12.0-15.0); Lymphocyte % 14.2 % (19-41); Mean Corp Hgb Conc 32.6 g/dL (32-36); Mean Corpuscular Hgb 26.7 pg (27.0-32.0); Mean Platelet Vol. 10.3 fl (6.2-12.0); Monocyte# 0.71 X10^3/uL; Monocyte% 6.7 % (0-10); NRBC Flagged by Analyzer 0 % (0-5); Neutrophil # 8.08 X10^3/uL (2.7-7.7); Neutrophil % 76.5 % (47-70); Platelet Count 271 K/mm3 (150-450); RBC Distribution Width CV 15.3 % (11.6-14.6); Red Blood Count 4.94 M/mm3 (4.2-5.4); White Blood Count 10.6 K/mm3 (4.4-11.0)
[2019-08-29] MEDS: miSOPROStol 25 MCG TABLET PO (20:11)
[2019-08-29] MEDS: 0.9% Saline Lock 10 ML Syringe IV (20:46)
[2019-08-30] VITALS (32 sets, daily range): BP systolic 106–131; BP diastolic 60–80; PULSE 88–106; TEMP 36.6–37.7; O2SAT 96–99
[2019-08-30] MEDS: miSOPROStol 50 MCG TABLET PO (00:20)
[2019-08-30] MEDS: 0.9% Saline Lock 10 ML Syringe IV ×2 (06:02→07:46)
[2019-08-30] MEDS: Oxytocin 30 units/NS 500 ml 30 UNITS/500 ML IV.SOLN IV (07:44)
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
--- NOTE | 2019-08-30 18:03 | PN.OBGYN_ITS ---
Patient Problems: Active and Suspected Problems 41 weeks gestation of (Acute) Subjective: Not feeling any contractions. Objective: VSS. - Physical Exam Vitals/I&O's: Vital Signs Temp Pulse BP Pulse Ox 98.6 F 93 111/63 98 08/30/19 17:33 08/30/19 17:34 08/30/19 17:34 08/30/19 16:13 Weight: 94.347 kg Body Mass Index (BMI) 38.0 Intake and Output for Last 24 Hours 08/28/19 08/29/19 08/30/19 23:59 23:59 23:59 Intake Total 57.5 / 57.5 575.83 / 575.83 Output Total 150 / 150 600 / 600 Balance -92.5 / -92.5 -24.17 / -24.17 General: Alert, Oriented x3, Cooperative HEENT: Atraumatic, PERRLA, EOMI, Normocephalic Neck: Supple, No JVD, Negative Carotid Bruits Lungs: Clear to auscultation, Normal air movement Cardiovascular: Regular rate, No murmurs Abdomen: Bowel Sounds Present, Soft, Non Tender Extremities: No edema, Capillary Refill Less than 3 Seconds Skin: No rashes, No breakdown Musculoskeletal: No Tenderness to Palpation of Joints or Extremities Neurological: Cranial nerves II-XII grossly intact Psych/Mental Status: Normal Affect, Appropriate Laboratory Results 08/29/19 19:40: WBC 10.6, RBC 4.94, Hgb 13.2, Hct 40.5, MCV 82.0, MCH 26.7 L, MCHC 32.6, RDW Std Deviation 45.0 H, RDW Coeff of Shadi 15.3 H, Plt Count 271, MPV 10.3, Immature Gran % (Auto) 0.900, Neut % (Auto) 76.5 H, Lymph % (Auto) 14.2 L, Vinton % (Auto) 6.7, Eos % (Auto) 1.4, Baso % (Auto) 0.3, Absolute Neuts (auto) 8.1 H, Absolute Lymphs (auto) 1.50, Nucleated RBC % 0 08/29/19 19:40: Blood Type A POSITIVE, Antibody Screen NEGATIVE Current Medications Acetaminophen (Tylenol) 325 - 650 mg PO Q4H PRN PRN PRN Reason: Pain Score 1-3/10 Al Hydroxide/Mg Hydroxide (Mylanta Ii) 15 - 30 ml PO Q4H PRN PRN PRN Reason: INDIGESTION Citric Acid/Sodium Citrate (Bicitra) 30 ml PO X1 PRN PRN Reason: Section Fentanyl Citrate (Sublimaze (100mcg Ampule)) 25 - 50 mcg IV Q2H PRN PRN PRN Reason: Pain Score 4-10/10 Lactated Ringer's () 500 mls @ 999 mls/hr IV .Q31M PRN PRN Reason: Epidural Lactated Ringer's () 500 mls @ 999 mls/hr IV .Q31M PRN PRN Reason: Corrective Measures Lactated Ringer's () 1,000 mls @ 50 mls/hr IV .Q20H FORMERLY [facility], [facility] Last Infusion: 08/29/19 20:49 Dose: 0 mls/hr Documented by: Oxytocin/Sodium Chloride () 30 units in 500 mls @ 2 mls/hr IV .Q250H FOR[facility]LY [facility], [facility]1983 Last Infusion: 08/30/19 16:40 Dose: 0 mls/hr Documented by: Ondansetron HCl (Zofran) 4 mg IV Q4H PRN PRN PRN Reason: NAUSEA Prochlorperazine Edisylate (Compazine Iv) 10 mg IV Q6H PRN PRN PRN Reason: NAUSEA Sodium Chloride () 10 - 40 ml IV X1 PRN PRN Reason: SALINE FLUSH Last Admin: 08/30/19 07:46 Dose: 10 ml Documented by: Medical Necessity - Tobacco Use Smoking Status: Former smoker Assessment/Plan All Active Problems Sinus tachycardia (Acute) Bimalleolar fracture of left ankle (Acute) 39 weeks gestation of (Acute) 41 weeks gestation of (Acute) A/P: Pitocin has been off x 1 hour Cervix unchanged at ft/50/-2 Unable to penetrate through cervical OS In consultation with Dr. Mac and in shared decision making with patient, will plan to allow her to eat a regular supper. After supper will restart a new bag of Pitocin. At HS she is willing to allow group underwriter to attempt a tillman catheter insertion.
[2019-08-30] MEDS: Acetaminophen 325 MG Tablet PO (21:35)
[2019-08-30] MEDS: fentaNYL 100 MCG/2 ML Ampul IV (21:50)
--- NOTE | 2019-08-30 22:24 | PCM.PN.OB ---
Patient Problems: Active and Suspected Problems 41 weeks gestation of (Acute) Subjective: Feeling contractions every 2-3 minutes, pain is a 4/10. Objective: VSS. UC 2-3m. FHR baseline 135, +accels, -decels, moderate variability. Category I tracing. SVE ft/90/-2 - Physical Exam Vitals/I&O's: Vital Signs Temp Pulse BP Pulse Ox 98.8 F 101 H 130/80 H 99 08/30/19 21:28 08/30/19 21:29 08/30/19 21:28 08/30/19 21:29 Weight: 94.347 kg Body Mass Index (BMI) 38.0 Intake and Output for Last 24 Hours 08/28/19 08/29/19 08/30/19 23:59 23:59 23:59 Intake Total 57.5 / 57.5 586.26 / 586.26 Output Total 150 / 150 1000 / 1000 Balance -92.5 / -92.5 -413.74 / -413.74 General: Alert, Oriented x3, Cooperative HEENT: Atraumatic, PERRLA, EOMI, Normocephalic Neck: Supple, No JVD, Negative Carotid Bruits Lungs: Clear to auscultation, Normal air movement Cardiovascular: Regular rate, No murmurs Abdomen: Bowel Sounds Present, Soft, Non Tender Extremities: No edema, Capillary Refill Less than 3 Seconds Skin: No rashes, No breakdown Musculoskeletal: No Tenderness to Palpation of Joints or Extremities Neurological: Cranial nerves II-XII grossly intact Psych/Mental Status: Normal Affect, Appropriate Current Medications Acetaminophen (Tylenol) 325 - 650 mg PO Q4H PRN PRN PRN Reason: Pain Score 1-3/10 Last Admin: 08/30/19 21:35 Dose: 650 mg Documented by: Al Hydroxide/Mg Hydroxide (Mylanta Ii) 15 - 30 ml PO Q4H PRN PRN PRN Reason: INDIGESTION Citric Acid/Sodium Citrate (Bicitra) 30 ml PO X1 PRN PRN Reason: Section Fentanyl Citrate (Sublimaze (100mcg Ampule)) 25 - 50 mcg IV Q2H PRN PRN PRN Reason: Pain Score 4-10/10 Last Admin: 08/30/19 21:50 Dose: 50 mcg Documented by: Lactated Ringer's () 500 mls @ 999 mls/hr IV .Q31M PRN PRN Reason: Epidural Lactated Ringer's () 500 mls @ 999 mls/hr IV .Q31M PRN PRN Reason: Corrective Measures Lactated Ringer's () 1,000 mls @ 50 mls/hr IV .Q20H S[facility]I Last Infusion: 08/30/19 07:46 Dose: 50 mls/hr Documented by: Oxytocin/Sodium Chloride () 30 units in 500 mls @ 2 mls/hr IV .Q250H [facility] Last Infusion: 08/30/19 21:47 Dose: 8 mls/hr Documented by: Ondansetron HCl (Zofran) 4 mg IV Q4H PRN PRN PRN Reason: NAUSEA Prochlorperazine Edisylate (Compazine Iv) 10 mg IV Q6H PRN PRN PRN Reason: NAUSEA Sodium Chloride () 10 - 40 ml IV X1 PRN PRN Reason: SALINE FLUSH Last Admin: 08/30/19 07:46 Dose: 10 ml Documented by: Medical Necessity - Tobacco Use Smoking Status: Former smoker Assessment/Plan All Active Problems Sinus tachycardia (Acute) Bimalleolar fracture of left ankle (Acute) 39 weeks gestation of (Acute) 41 weeks gestation of (Acute) A/P: Cervix remains unopened ft/90/-1 IV Fentanyl given Mechanical dilation with tillman catheter attempted and unsuccessful 3 minutes of cervical massage given Will continue Pitocin until 0200 then recheck SVE, if unchanged to Pitocin break until 0600 Dr. Mac will be in assess tomorrow morning Patient updated on plan of care and is agreeable
[2019-08-30] MEDS: Lactated Ringers 500 ML 999 ML IV ×2 (22:50→23:35)
[2019-08-31] VITALS (63 sets, daily range): BP systolic 101–139; BP diastolic 53–87; PULSE 95–124; RESP 16–18; TEMP 36.5–37.7; O2SAT 95–99
[2019-08-31] MEDS: fentaNYL-bupivacaine (epidural) 100 ML BAG EPIDURAL ×4 (00:31→14:42)
[2019-08-31] MEDS: Lactated Ringers 1,000 ML 200 ML IV ×5 (00:35→17:42)
[2019-08-31] MEDS: Mag Hydrox/Al Hydrox/Simeth 30 ML UDC PO (06:19)
--- NOTE | 2019-08-31 08:49 | PCM.PN.OB ---
Patient Problems: Active and Suspected Problems 41 weeks gestation of (Acute) Subjective: Tired this morning with little sleep, but epidural in and no pain. Objective: VSS. Uterine irritability noted. SVE ft/90/-1 soft anterior. FHR baseline 130, +accels, -decels, moderate variability - Physical Exam Vitals/I&O's: Vital Signs Temp Pulse BP Pulse Ox 99.1 F 104 H 105/58 L 97 08/31/19 08:37 08/31/19 08:22 08/31/19 08:22 08/31/19 08:22 Weight: 94.347 kg Body Mass Index (BMI) 38.0 Intake and Output for Last 24 Hours 08/29/19 08/30/19 08/31/19 23:59 23:59 23:59 Intake Total 57.5 / 57.5 1764.72 / 1764.72 2568.48 / 2568.48 Output Total 150 / 150 1000 / 1000 Balance -92.5 / -92.5 764.72 / 764.72 2568.48 / 2568.48 General: Alert, Oriented x3, Cooperative HEENT: Atraumatic, PERRLA, EOMI, Normocephalic Neck: Supple, No JVD, Negative Carotid Bruits Lungs: Clear to auscultation, Normal air movement Cardiovascular: Regular rate, No murmurs Abdomen: Bowel Sounds Present, Soft, Non Tender Extremities: No edema, Capillary Refill Less than 3 Seconds Skin: No rashes, No breakdown Musculoskeletal: No Tenderness to Palpation of Joints or Extremities Neurological: Cranial nerves II-XII grossly intact Psych/Mental Status: Normal Affect, Appropriate Current Medications Acetaminophen (Tylenol) 325 - 650 mg PO Q4H PRN PRN PRN Reason: Pain Score 1-3/10 Last Admin: 08/30/19 21:35 Dose: 650 mg Documented by: Al Hydroxide/Mg Hydroxide (Mylanta Ii) 15 - 30 ml PO Q4H PRN PRN PRN Reason: INDIGESTION Last Admin: 08/31/19 06:19 Dose: 30 ml Documented by: Citric Acid/Sodium Citrate (Bicitra) 30 ml PO X1 PRN PRN Reason: Section Ephedrine Sulfate () 10 mg IV Q10M PRN PRN Reason: hypotension Ephedrine Sulfate () 10 mg IM Q30M PRN PRN Reason: hypotension Fentanyl Citrate (Sublimaze (100mcg Ampule)) 25 - 50 mcg IV Q2H PRN PRN PRN Reason: Pain Score 4-10/10 Last Admin: 08/30/19 21:50 Dose: 50 mcg Documented by: Fentanyl/Bupivacaine/Sodium Chlor () 0 ml EPIDURAL UD [facility]; Protocol Last Admin: 08/31/19 04:40 Dose: 100 ml Documented by: Lactated Ringer's () 500 mls @ 999 mls/hr IV .Q31M PRN PRN Reason: Epidural Last Infusion: 08/31/19 00:05 Dose: Infused Documented by: Lactated Ringer's () 500 mls @ 999 mls/hr IV .Q31M PRN PRN Reason: Corrective Measures Last Infusion: 08/30/19 23:10 Dose: Infused Documented by: Lactated Ringer's () 1,000 mls @ 50 mls/hr IV .Q20H [facility] Last Admin: 08/31/19 08:00 Dose: 200 mls/hr Documented by: Oxytocin/Sodium Chloride () 30 units in 500 mls @ 2 mls/hr IV .Q250H [facility] Last Infusion: 08/31/19 06:29 Dose: 0 mls/hr Documented by: Naloxone HCl 4 mg/ Dextrose 504 mls @ 0 mls/hr IV .Q0M PRN; Protocol PRN Reason: To maintain Resp. rate >10 Nalbuphine HCl (Nubain) 5 mg IV Q3H PRN PRN PRN Reason: ITCHING Naloxone HCl (Narcan) 0.02 mg IV Q1M PRN PRN Reason: RR< 10 AND PT UNRESPONSIVE Ondansetron HCl (Zofran) 4 mg IV Q4H PRN PRN PRN Reason: NAUSEA Prochlorperazine Edisylate (Compazine Iv) 10 mg IV Q6H PRN PRN PRN Reason: NAUSEA Sodium Chloride () 10 - 40 ml IV X1 PRN PRN Reason: SALINE FLUSH Last Admin: 08/30/19 07:46 Dose: 10 ml Documented by: Medical Necessity - Tobacco Use Smoking Status: Former smoker Assessment/Plan All Active Problems Sinus tachycardia (Acute) Bimalleolar fracture of left ankle (Acute) 39 weeks gestation of (Acute) 41 weeks gestation of (Acute) A/P: SVE remains unchanged Overnight prolonged deceleration with Pitocin stopped at that time Dr. Mac updated this AM on FHR and NST, plan to evaluate the patient this AM for either mechanical cervical dilation vs csection Patient understands plan of care and at this time is resting Pitocin remains off with Category I NST
--- NOTE | 2019-08-31 12:10 | PCM.PN.BLA ---
Progress Note LABOR PROGRESS NOTE Opal is comfortable with her epidural. No complaints. AVSS GEN - NAD, AAO x 3 FHR 140, moderate variability, + accelerations, no decelerations TOCO 1/10 min SVE cervical dimple palpable on exam A/P: 28yo G1 @ 41 1/7wga, IOL, Cat I FHR on pitocin with cervical stenosis, hx LEEP. -Unsuccessful manually dilated given head well applied to dimple, however dimpling expanded by millimeters with some blood show expulsed. -Reviewed findings with patient with prolonged IOL 2/2 cervical stenosis. -Advised Trendelenberg and will reattempt manual dilation. If unsuccessful, plan for mechanical dilation. Patient in agreement with plan. STROKE Vital Signs/Narrative: Vital Signs Temp Pulse BP Pulse Ox 08/31/19 12:09 98.8 F 103 H 119/69 97 08/31/19 10:33 99.1 F 97 08/31/19 10:31 106 H 116/69 08/31/19 10:25 98.2 F 08/31/19 09:27 99.3 F H 110 H 116/70 95 08/31/19 08:37 99.1 F
--- NOTE | 2019-08-31 12:42 | OP.PCM_ITS ---
Problem List (1) Cervical os stenosis Status: Acute (2) Labor abnormality Status: Acute (3) 41 weeks gestation of Status: Acute Report of Operation Date of Procedure: 08/31/19 Pre-Operative Diagnosis: 1. 41 1/7 weeks gestation. 2. Cervical stenosis Post-Operative Diagnosis: 1. 41 1/7 weeks gestation. 2. Cervical stenosis Surgery/Procedure Performed:: Mechanical cervical dilation Description of Surgical Findings:: See procedure note Type of Anesthesia:: Epidural Estimated Blood Loss (mL): 10 Description of Procedure: Indications: 28yo G1 at 41 1/7wga undergoing induction of labor with only effacement noted on exam despite cervical ripening and pitocin over 36 hours. Patient has a history of LEEP. On my exam, cervical dimpling palpable however head well applied and unable to expand dimpling manually apart from likely millimeter caliber stretching. I reviewed with patient findings and advised her of plan to re-attempt with repositioning and mechanical dilation as indicated. Procedural risks, benefits were reviewed and patient agreeable to proceed. Procedure: Patient was placed into dorsal lithotomy while Trendelenberg was already employed. A sterile vaginal exam performed. The cervix remained resistant to manual dilation. A sterile speculum was placed vaginally and the cervical dimpling was directly visualized. The cervix was subsequently dilated using sterile Roberts dilators to 32 Armenian. The speculum was removed and again sterile vaginal exam performed. The cervix was slightly less than 1cm dilated however with minimal manipulation I was able to digitally traverse the external os. Membranes were stripped in the efforts to manually lyse cervical adhesions and banding with resulting exam 3.5cm/90/-3/soft/midposition. The membranes were immediately overlying the scalp, thus an internal scalp electrode was placed for rupture of membranes with scant fluid retrieved. FHR remained 135, moderate variability, + accelerations, no decelerations throughout the procedure. The procedure was complete and patient tolerated the procedure well. - Admit VTE Documentation VTE Present on Admission: No VTE Pharm Prophylaxis ordered?: No
[2019-08-31] MEDS: Sodium Citrate/Citric Acid 30 ML UDC PO (18:15)
[2019-08-31] MEDS: Cefazolin 2 GM in 0.9% Normal Saline 100 ML IV (18:23)
--- NOTE | 2019-08-31 18:41 | OP.PCM_ITS ---
Delivery Classification: ALAYNA Final ESMER: 08/23/19 Final ESMER Source: US <20 weeks Gestational age: 41 Weeks and 1 Days customer facilities supervisor: Priya Shore Type of Anesthesia:: Epidural - With Duramorph Implants Used: None Date of Procedure: 08/31/19 Pre-Operative Diagnosis: Postdate Intrauterine with Failure to Progress Post-Operative Diagnosis: Postdate Intrauterine with Failure to Progress Description of Procedure: Surgeon: Loco Mac MD, FACOG Anesthesia: Chely Ferguson MD Procedure: Primary Low Transverse Cervical Caesarean Section Findings: Viable male with Apgars of 8/9 in posterior presentation with clear amniotic fluid and normal three-vessel placenta. Indication: This is a 28-year-old who presented for induction at 41 weeks gestation. Patient had a stenotic cervix from a prior LEEP procedure and progressed slowly and was eventually mechanically 76dilated after approximately 36 hours of labor. She then progressed to 4 cm and remained at 4 cm and -1 station for approximately 5 to 6 hours. Given that we were 2 days into the induction and cervix had failed to dilate and baby had failed to descend it was decided to proceed with section for failure to progress. The patient has been counseled regarding the risk and indications of this procedure including the possibility of bleeding infection and injury to surrounding structures such as bowel bladder. All questions were answered. Procedure: Patient was taken to the operating room where after spinal anesthesia was placed, the patient was prepped and draped in usual sterile fashion. A Vance catheter had been previously placed. The abdomen was entered through a Pfannenstiel incision and peritoneum was entered bluntly. After developing a bladder flap on the lower uterine segment a low transverse incision was made on the uterus and head was delivered onto the operative field with some difficulty due to contraction of the rectus muscles due to the epidural not providing sufficient relaxation. Before delivering the head approximately a 1 cm incision was made on each rectus muscle in a malar fashion using cautery. Approximately 45 seconds elapsed to deliver the head. Nose mouth and oropharynx were then bulb suctioned. Subsequently a viable male infant was born with Apgars of 8/9. The was noted to cry move all extremities vigorously on the operative field. The umbilical cord was doubly clamped and ligated and infant handed to the nursery personnel who were present for the delivery. Placenta was delivered and noted to be 3 vessels and normal. Uterus was exteriorized and remaining placental tissue was removed. There was noted to be an extension into the left angle. The uterus was then closed in 2 layers first with running locked 0 Vicryl suture followed by a second imbricating layer with 0 Vicryl suture. 0 Vicryl suture was then used in a horizontal mattress interrupted fashion to affect final hemostasis of the uterine incision line. Normal fallopian tubes and ovaries were visualized and the uterus was returned to the pelvis. Hemostasis was noted and rectus abdominis muscles were reapproximated in the midline with interrupted Number 0 Vicryl suture in a horizontal mattress fashion. Fascia was closed with running Number 1 PDS Strata fix suture. Subcutaneous tissue was irrigated with copious amouts of saline solution and then closed with running 3-0 Vicryl suture in 2 layers. Skin was closed with 4-0 monocryl suture in a running subcuticular fashion. Steri strips and a large silver Mepilex dressing were placed across the incision. The patient tolerated the procedure well and was taken to the recovery room in satisfactory condition. Sponge, needle, and instrument counts were all reportedly correct. EBL was 750 cc. Ancef 2 gms IV and azithromycin were given prior to the procedure. Spicemen to Pathology: None Complications: None Amniotic Membrane Rupture Type: Artificial Amniotic Fluid Description: Clear Placenta Disposition: [facility] Specimen(s) sent to pathology: None Drain: Vance to straight drain Fluids Replaced: Crystalloid Cord Entanglement: None Cord Vessel Description: 3 Vessels Esitmated Blood Loss (ml): 500 cc Gender: Male (1 minute): 8 (5 minute): 9 Antibiotic Given: Ancef 2 grams IV x1 Pt instructed on risks of surgery: Bleeding, Infection, Injury to surrounding structure(s) including bowel and bladder Complications: None - Admit VTE Documentation VTE Present on Admission: Yes VTE Mechan Device Prophylaxis: SCD's VTE Pharm Prophylaxis ordered?: Yes
[2019-08-31] MEDS: Methylergonovine 0.2 MG/ML Ampul IM (19:01)
--- NOTE | 2019-08-31 20:08 | DCINST_ITS ---
<Loco Mac - Last Filed: 08/31/19 20:08> Discharge Diet: No Restrictions Discharge Activity: May not drive while taking narcotic pain medications., May Shower, May Take a Tub Bath May resume sexual activity in: 4-6 weeks Lifting Restrictions: 20 pounds Additional Activity Instructions:: Nothing in the vagina for 4-6 weeks. You may return to work/school in 6 weeks. Call your doctor if your incision/area has: Continuous Slow Oozing, Sudden Increased Bleeding, Increased Pain/ Swelling, Increased Redness, Foul Smelling Discharge Call your doctor if you observe: Fever of 101 or Higher, Inability to urinate, Inability to have a bowel movement, Using more than one pad per hour Additional Instructions: If you experience any of the following, contact your healthcare provider. * Bleeding that soaks a pad every hour for 2 hours * Fever 100.4 or higher * Unrelieved incision or abdominal pain * Swelling, redness, discharge or bleeding from your incision or episiotomy site * Your incision begins to separate * Problems urinating (including inability to urinate or burning while urinating). * Visual changes * Severe headache * Flu-like symptoms * Pain or redness in one of both of your breasts * Pain, warmth, tenderness or swelling in your legs, especially the calf area * Frequent nausea and vomiting * Symptoms of depression or anxiety If you experience any of the following, call 911 or go to the nearest Emergency Room. * Chest pain * Problems breathing * Seizure activity * Partial or complete paralysis of a body part, slurred speech, weakness or drooping of the face, or a sudden inability to walk or hold your balance Allergies/Adverse Reactions: Allergies No Known Allergies Allergy (Verified 08/15/19 19:59) Medications to take at Discharge busPIRone [Buspar] 30 mg PO DAILY 12/15/17 Omeprazole 40 mg PO DAILY 08/15/19 Vits [Prenatabs FA ] 1 tab PO DAILY 08/15/19 Docusate Sodium [Colace] 100 mg PO BID PRN PRN #60 cap 08/31/19 Oxycodone [Oxyir] 5 mg PO Q6H PRN PRN 7 Days #20 tab 08/31/19 The following prescriptions were given: Docusate Sodium [Colace] 100 mg PO BID PRN PRN #60 cap PRN Reason: Constipation Transmission Status: Received by [facility] Oxycodone [Oxyir] 5 mg PO Q6H PRN PRN 7 Days #20 tab PRN Reason: Pain Score 6-10/10 Transmission Status: Received by [facility] Follow-Up: Call to make an appointment with your doctor for an incision check in 1-2 weeks. You will also need a 6 week post- follow up appointment. Test results from this visit will be discussed in further detail at your follow- up appointment, if applicable. Please Follow Up With: Loco Mac MD - [phone] When: Call to make an appointment for an incision check in 2 weeks. <Teresa Quinones - Last Filed: 09/02/19 08:10> Additional Instructions: If you experience any of the following, contact your healthcare provider. * Bleeding that soaks a pad every hour for 2 hours * Fever 100.4 or higher * Unrelieved incision or abdominal pain * Swelling, redness, discharge or bleeding from your incision or episiotomy site * Your incision begins to separate * Problems urinating (including inability to urinate or burning while urinating). * Visual changes * Severe headache * Flu-like symptoms * Pain or redness in one of both of your breasts * Pain, warmth, tenderness or swelling in your legs, especially the calf area * Frequent nausea and vomiting * Symptoms of depression or anxiety If you experience any of the following, call 911 or go to the nearest Emergency Room. * Chest pain * Problems breathing * Seizure activity * Partial or complete paralysis of a body part, slurred speech, weakness or drooping of the face, or a sudden inability to walk or hold your balance Follow-Up: Call to make an appointment with your doctor for an incision check in 1-2 weeks. You will also need a 6 week post- follow up appointment. Test results from this visit will be discussed in further detail at your follow- up appointment, if applicable. Please Follow Up With: Teresa Quinones CNM
[2019-08-31] MEDS: Oxytocin 30 units/NS 500 ml 30 UNITS/500 ML IV.SOLN 167 UNITS IV (20:55)
--- NOTE | 2019-08-31 23:23 | NURSING ---
epidural catheter removed- blue tip intact
[2019-08-31] MEDS: Lactated Ringers 1,000 ML 100 ML IV (23:57)
[2019-09-01] VITALS (17 sets, daily range): BP systolic 92–124; BP diastolic 54–76; PULSE 84–104; RESP 16–18; TEMP 36.6–37.1; O2SAT 95–99
[2019-09-01] MEDS: Acetaminophen 500 MG Tablet 1000 MG PO ×4 (00:08→20:11)
[2019-09-01] MEDS: Ketorolac 30 MG/ML Syringe IV ×3 (01:54→15:03)
[2019-09-01] MEDS: Cefazolin 1 GM/50 ML BAG IV ×2 (03:17→10:55)
[2019-09-01 05:57] LABS: Hematocrit 30.3 % (37-47); Hemoglobin 9.7 g/dL (12.0-15.0); Mean Corpuscular Hgb 26.6 pg (27.0-32.0); Mean Corpuscular Volume 83.2 fL (81-99); Mean Platelet Vol. 9.9 fl (6.2-12.0); Platelet Count 197 K/mm3 (150-450); RBC Distribution Width CV 15.7 % (11.6-14.6); RBC Distribution Width SD 47.4 fl (35.1-43.9); Red Blood Count 3.64 M/mm3 (4.2-5.4); White Blood Count 14.6 K/mm3 (4.4-11.0)
[2019-09-01] MEDS: Enoxaparin 40 MG/0.4 ML Syringe SC (07:52)
[2019-09-01] MEDS: Lactated Ringers 1,000 ML 100 ML IV (07:53)
--- NOTE | 2019-09-01 07:59 | PCM.PN.OB ---
Patient Problems: Active and Suspected Problems 41 weeks gestation of (Acute) Cervical os stenosis (Acute) Labor abnormality (Acute) Subjective: Very tired today. Has gotten only a little bit of sleep. Feeling okay. Has been out of bed once, but still has tillman catheter in. Pain is well controlled with IV medication. is a challenge so far because he won't latch well. Boyfriend had to leave for work this AM, but will be back this afternoon to help. Objective: VSS. Fundus is firm, midline at U. Surgical dressing is CDI. Pain 0/10 with IV medication. Lochia rubra moderate. - Physical Exam Vitals/I&O's: Vital Signs Temp Pulse Resp BP Pulse Ox 97.9 F 93 18 111/74 95 09/01/19 05:25 09/01/19 05:25 09/01/19 06:37 09/01/19 05:09/01/19 06:37 Oxygen Delivery Method Room Air Weight: 94.347 kg Body Mass Index (BMI) 38.0 Intake and Output for Last 24 Hours 08/30/19 08/31/19 09/01/19 23:59 23:59 23:59 Intake Total 1764.72 / 1764.72 6226.78 / 6226.78 1093.33 / 1093.33 Output Total 1000 / 1000 1250 / 1250 200 / 200 Balance 764.72 / 764.72 4976.78 / 4976.78 893.33 / 893.33 General: Alert, Oriented x3, Cooperative HEENT: Atraumatic, PERRLA, EOMI, Normocephalic Neck: Supple, No JVD, Negative Carotid Bruits Lungs: Clear to auscultation, Normal air movement Cardiovascular: Regular rate, No murmurs Abdomen: Bowel Sounds Present, Soft, Non Tender Extremities: No edema, Capillary Refill Less than 3 Seconds Skin: No rashes, No breakdown, Incision - abdominal surgical dressing CDI Musculoskeletal: No Tenderness to Palpation of Joints or Extremities Neurological: Cranial nerves II-XII grossly intact Psych/Mental Status: Normal Affect, Appropriate Laboratory Results 09/01/19 05:45: WBC 14.6 H, RBC 3.64 L, Hgb 9.7 L, Hct 30.3 L, MCV 83.2, MCH 26.6 L, MCHC 32.0, RDW Std Deviation 47.4 H, RDW Coeff of Shadi 15.7 H, Plt Count 197, MPV 9.9 Current Medications Acetaminophen (Tylenol) 1,000 mg PO Q6 [facility] Last Admin: 09/01/19 06:15 Dose: 1,000 mg Documented by: Bisacodyl (Dulcolax) 10 mg RECTAL UD PRN PRN Reason: If no BM Buspirone HCl (Buspar) 30 mg PO DAILY [facility] Diphenhydramine HCl (Benadryl) 25 mg PO Q6H PRN PRN PRN Reason: ITCHING Stop: 09/01/19 23:34 Enoxaparin Sodium (Lovenox) 40 mg SC DAILY@0700 [facility] Last Admin: 09/01/19 07:52 Dose: 40 mg Documented by: Hydrocortisone (Hytone) 1 applic TOPICAL TID PRN PRN; Protocol PRN Reason: Discomfort Lactated Ringer's () 1,000 mls @ 100 mls/hr IV .Q10H [facility] Last Admin: 09/01/19 07:53 Dose: 100 mls/hr Documented by: Naloxone HCl 4 mg/ Dextrose 504 mls @ 0 mls/hr IV .Q0M PRN; Protocol PRN Reason: Respiratory depression Cefazolin Sodium () 1 gm in 50 mls @ 150 mls/hr IV Q8H [facility] Stop: 09/01/19 10:49 Last Infusion: 09/01/19 03:45 Dose: Infused Documented by: Ibuprofen (Motrin) 600 mg PO Q6 [facility] Ketorolac Tromethamine (Toradol (Bkc)) 30 mg IV Q6 [facility] Stop: 09/01/19 18:01 Last Admin: 09/01/19 07:52 Dose: 30 mg Documented by: Methylergonovine Maleate (Methergine) 0.2 mg IM X1 PRN PRN Reason: Uterine Atony Last Admin: 08/31/19 19:01 Dose: 0.2 mg Documented by: Naloxone HCl (Narcan) 0.02 mg IV Q1M PRN PRN Reason: RR <10 and pt unresponsive Ondansetron HCl (Zofran) 4 mg IV Q4H PRN PRN PRN Reason: Nausea Oxycodone HCl (Oxyir) 5 - 10 mg PO Q4H PRN PRN PRN Reason: Pain Score 4-10/10 Pantoprazole Sodium (Protonix) 40 mg PO DAILY [facility] Prochlorperazine Edisylate (Compazine Iv) 10 mg IV Q6H PRN PRN PRN Reason: NAUSEA Senna/Docusate Sodium (Senokot-S, Jessica-Colace) 1 - 2 tablet PO DAILY [facility] Simethicone (Mylicon) 80 mg PO PCHS PRN PRN Reason: Indigestion/stomach pain Sodium Chloride () 5 - 15 ml IV UD PRN PRN Reason: SALINE FLUSH Medical Necessity - Tobacco Use Smoking Status: Former smoker Assessment/Plan All Active Problems Sinus tachycardia (Acute) Bimalleolar fracture of left ankle (Acute) 39 weeks gestation of (Acute) 41 weeks gestation of (Acute) Cervical os stenosis (Acute) Labor abnormality (Acute) A/P: POD #1 S/P Primary Section for failure to progress mother Normal involution and course Pain well controlled Plan to take tillman out this afternoon Education on urination, passing flatus, latches including a breast shield, pain control, and resting today Hopes to discharge tomorrow, but understands this is up to how she is recuperating Continue routine surgical orders
[2019-09-01] MEDS: Senna/Docusate Sodium 1 Tablet PO (10:52)
[2019-09-01] MEDS: busPIRone 15 MG TABLET 30 MG PO (10:53)
[2019-09-01] MEDS: Pantoprazole Sodium 40 MG Tablet PO (10:55)
[2019-09-01] MEDS: 0.9% Saline Lock 10 ML Syringe IV (15:03)
[2019-09-01] MEDS: Ibuprofen 600 MG Tablet PO (23:32)
[2019-09-02 02:00] VITALS: BP 117/81; PULSE 100; RESP 16; TEMP 36.7
[2019-09-02] MEDS: Acetaminophen 500 MG Tablet 1000 MG PO ×2 (04:04→10:11)
[2019-09-02] MEDS: Ibuprofen 600 MG Tablet PO (06:26)
[2019-09-02] MEDS: Enoxaparin 40 MG/0.4 ML Syringe SC (06:27)
--- NOTE | 2019-09-02 08:10 | PCM.DC.SUM ---
Discharge Date and Diagnosis - Problem List Patient Problems: Active and Suspected Problems 41 weeks gestation of (Acute) Cervical os stenosis (Acute) Labor abnormality (Acute) Date of Admission: 08/29/19 Date of Discharge: 09/02/19 - Primary Discharge Diagnosis Acute Problems: Active Problems 41 weeks gestation of (Acute) Cervical os stenosis (Acute) Labor abnormality (Acute) Hospital Course and Treatment Consultations 08/29/19 19:22 Consult: Anesthesia Routine Comment: Reason For Exam: Labor Operations: None Summary of Care Provided: The patient is a 28 year old F [] Patient Problems: Active and Suspected Problems 41 weeks gestation of (Acute) Cervical os stenosis (Acute) Labor abnormality (Acute) Subjective: Feeling much better. Cramping and a little pain at incision site. Denies heavy bleeding. Reports urinating well, passing flatus, and tolerating regular diet. Would like to discharge home today. Objective: VSS. Fundus is firm, midline, u/1. Lochia rubra moderate. - Physical Exam Vitals/I&O's: Vital Signs Temp Pulse Resp BP Pulse Ox 98.0 F 100 16 117/81 H 98 09/02/19 02:00 09/02/19 02:00 09/02/19 02:00 09/02/19 02:00 09/01/19 18:00 Oxygen Delivery Method Room Air Weight: 94.347 kg Body Mass Index (BMI) 38.0 Intake and Output for Last 24 Hours 08/31/19 09/01/19 09/02/19 23:59 23:59 23:59 Intake Total 6226.78 / 6226.78 1461.66 / 1461.66 Output Total 1250 / 1250 600 / 600 Balance 4976.78 / 4976.78 861.66 / 861.66 General: Alert, Oriented x3, Cooperative HEENT: Atraumatic, PERRLA, EOMI, Normocephalic Neck: Supple, No JVD, Negative Carotid Bruits Lungs: Clear to auscultation, Normal air movement Cardiovascular: Regular rate, No murmurs Abdomen: Bowel Sounds Present, Soft, Non Tender, - - fundus u/1, incision CDI Extremities: No edema, Capillary Refill Less than 3 Seconds Skin: No rashes, No breakdown, Incision - CDI Musculoskeletal: No Tenderness to Palpation of Joints or Extremities Neurological: Cranial nerves II-XII grossly intact Psych/Mental Status: Normal Affect, Appropriate Current Medications Acetaminophen (Tylenol) 1,000 mg PO Q6 [facility] Last Admin: 09/02/19 04:04 Dose: 1,000 mg Documented by: Bisacodyl (Dulcolax) 10 mg RECTAL UD PRN PRN Reason: If no BM Buspirone HCl (Buspar) 30 mg PO DAILY [facility] Last Admin: 09/01/19 10:53 Dose: 30 mg Documented by: Enoxaparin Sodium (Lovenox) 40 mg SC DAILY@0700 [facility] Last Admin: 09/02/19 06:27 Dose: 40 mg Documented by: Hydrocortisone (Hytone) 1 applic TOPICAL TID PRN PRN; Protocol PRN Reason: Discomfort Naloxone HCl 4 mg/ Dextrose 504 mls @ 0 mls/hr IV .Q0M PRN; Protocol PRN Reason: Respiratory depression Ibuprofen (Motrin) 600 mg PO Q6 [facility] Last Admin: 09/02/19 06:26 Dose: 600 mg Documented by: Methylergonovine Maleate (Methergine) 0.2 mg IM X1 PRN PRN Reason: Uterine Atony Last Admin: 08/31/19 19:01 Dose: 0.2 mg Documented by: Naloxone HCl (Narcan) 0.02 mg IV Q1M PRN PRN Reason: RR <10 and pt unresponsive Ondansetron HCl (Zofran) 4 mg IV Q4H PRN PRN PRN Reason: Nausea Oxycodone HCl (Oxyir) 5 - 10 mg PO Q4H PRN PRN PRN Reason: Pain Score 4-10/10 Pantoprazole Sodium (Protonix) 40 mg PO DAILY [facility] Last Admin: 09/01/19 10:55 Dose: 40 mg Documented by: Prochlorperazine Edisylate (Compazine Iv) 10 mg IV Q6H PRN PRN PRN Reason: NAUSEA Senna/Docusate Sodium (Senokot-S, Jessica-Colace) 1 - 2 tablet PO DAILY [facility] Last Admin: 09/01/19 10:52 Dose: 1 tablet Documented by: Simethicone (Mylicon) 80 mg PO PCHS PRN PRN Reason: Indigestion/stomach pain Sodium Chloride () 5 - 15 ml IV UD PRN PRN Reason: SALINE FLUSH Last Admin: 09/01/19 15:03 Dose: 10 ml Documented by: Discharge Diet: No Restrictions Discharge Activity: May not drive while taking narcotic pain medications., May Shower, May Take a Tub Bath May resume sexual activity in: 4-6 weeks Additional Activity Instructions:: Nothing in the vagina for 4-6 weeks. You may return to work/school in 6 weeks. Call your doctor if your incision/area has: Continuous Slow Oozing, Sudden Increased Bleeding, Increased Pain/ Swelling, Increased Redness, Foul Smelling Discharge Call your doctor if you observe: Fever of 101 or Higher, Inability to urinate, Inability to have a bowel movement, Using more than one pad per hour Home Medications: Medications to take at Discharge busPIRone [Buspar] 30 mg PO DAILY 12/15/17 Omeprazole 40 mg PO DAILY 08/15/19 Vits [Prenatabs FA ] 1 tab PO DAILY 08/15/19 Docusate Sodium [Colace] 100 mg PO BID PRN PRN #60 cap 08/31/19 Oxycodone [Oxyir] 5 mg PO Q6H PRN PRN 7 Days #20 tab 08/31/19 Following Prescrptions Were Given to Patient: Docusate Sodium [Colace] 100 mg PO BID PRN PRN #60 cap PRN Reason: Constipation Transmission Status: Received by [facility] Oxycodone [Oxyir] 5 mg PO Q6H PRN PRN 7 Days #20 tab PRN Reason: Pain Score 6-10/10 Transmission Status: Received by [facility] Please Follow Up With: Teresa Quinones CNM When: Call to make an appointment for an incision check in 2 weeks. Medical Necessity - Tobacco Use Smoking Status: Former smoker Meaningful Use Info Meaningful Use Diagnoses (Choose all that apply): None applicable
[2019-09-02 08:35] VITALS: BP 117/78; PULSE 88; RESP 18; TEMP 36.8; O2SAT 98
[2019-09-02] MEDS: Pantoprazole Sodium 40 MG Tablet PO (10:10)
[2019-09-02] MEDS: busPIRone 15 MG TABLET 30 MG PO (10:10)
[2019-09-02] MEDS: Senna/Docusate Sodium 1 Tablet PO (10:10)
[2019-09-02] MEDS: MedroxyPROGESTERone 150 MG/ML Syringe IM (11:31)
--- NOTE | 2019-09-06 12:12 | NURSING ---
Mother doing well on follow up phone call. States mostly bottle feeding but pumping and doing both formula and breast milk. Really like Jazmín Nascimento and had not symptoms of high bp and bleeding slowing down.
== END 2019-09-02 12:45 | disposition home or self-care (01) | DRG 540 ==
PROVIDERS: Admitting Provider Obstetrics & Gynecology; Referring Provider Obstetrics & Gynecology; Visit Provider Obstetrics & Gynecology
DX: O62.2 Other uterine inertia (principal); O76 Abnormality in fetal heart rate and rhythm complicating labor and delivery; O48.0 Post-term pregnancy; Z3A.41 41 weeks gestation of pregnancy; Z37.0 Single live birth; Z87.891 Personal history of nicotine dependence; O34.43 Maternal care for other abnormalities of cervix, third trimester; N88.2 Stricture and stenosis of cervix uteri; E66.01 Morbid (severe) obesity due to excess calories; O99.214 Obesity complicating childbirth
CPT/HCPCS: 59025; 59050; 85025; 85027; 86850; 86900; 86901; 99218; 99251; G2023; J7120; A4216; G0378; G0463; J2405

== ENCOUNTER → 2019-10-14 13:31 | Outpatient (CLI) | payer MEDICAID, SELFPAY ==
[2019-08-29 19:30] VITALS: BMI 38.0
[2019-10-14 16:16] LABS: ALB/GLOB Ratio 0.9 RATIO (0.9-2.4); AST(SGOT) 27 U/L (15-37); Alanine Aminotransfer ALT/SGPT 66 U/L (13-56); Albumin, Serum 3.6 g/dL (3.2-5.0); Alkaline Phosphatase 130 U/L (45-117); Anion Gap 8 (5-15); BUN 10 mg/dL (7-18); BUN/Creat Ratio 11.8 RATIO (10-20); Calcium,Total 8.1 mg/dL (8.5-10.1); Chloride 107 mmol/L (98-107); Creatinine, Serum 0.85 mg/dL (0.55-1.02); EST Glomerular Filtration Rate 84 mL/min (>60); Est Glom Filt Rate - Afr Amer 101 mL/min (>60); Globulin 3.8 g/dL (2.2-4.2); Glucose 112 mg/dL (74-106); Potassium 3.5 mmol/L (3.5-5.1); Protein, Total 7.4 g/dL (6.4-8.2); Sodium Level 139 mmol/L (136-145)
== END ==
PROVIDERS: Family Provider Family Medicine; PCP Family Medicine; Visit Provider Family Medicine
DX: R94.5 Abnormal results of liver function studies (principal)
CPT/HCPCS: 36415; 80053

== ENCOUNTER → 2019-11-17 13:46 | Outpatient (CLI) | payer MEDICAID, SELFPAY ==
[2019-08-29 19:30] VITALS: BMI 38.0
[2019-11-17 16:23] LABS: hCG Titer Quant., Serum < 1 mIU/mL (1-3)
== END ==
PROVIDERS: PCP Family Medicine; Visit Provider Obstetrics & Gynecology
DX: N93.9 Abnormal uterine and vaginal bleeding, unspecified (principal)
CPT/HCPCS: 36415; 84702

== ENCOUNTER → 2019-12-23 11:06 | Outpatient (CLI) | payer MEDICAID, SELFPAY ==
[2019-08-29 19:30] VITALS: BMI 38.0
--- NOTE | 2019-12-23 10:34 | EMB_PTH ---
PATIENT: AMADOR RIOS LOC: [facility] U#:[id number] AGE/SX: 34/F ROOM: RE12/23/[address]: Dr. Mariam Narvaez DO : 1990 BED: DIS: SPEC #: [id number] RECD: 12/23/19 16:08 STATUS: JARRELL RERa #: [id number] JOSE C: 12/23/19 10:[address]: Mariam Narvaez DEPT: SURGICAL PATHOLOGY RECD BY: Vanai Rutherford ENTERED: 12/26/19 08:33 SP TYPE: ENDOM BX/C RUFUS DR: Dr. Denis Staples MD Tissues: Endometrium, NOS Procedures: Surgery Specimen Level IV HEADER OPERATION: Endometrial biopsy PRE-OP DIAGNOSIS: Abnormal uterine bleeding TISSUE SUBMITTED: Endometrial biopsy MICROSCOPIC DIAGNOSIS Endometrial biopsy: Fragments of benign endometrial tissue with extensive exogenous hormone effects. SJ:renuka 12/27/19 MICROSCOPIC DESCRIPTION Slides are reviewed. GROSS DESCRIPTION Received in fixative is one container labeled with the patient's name and designated EMB. The specimen consists of multiple fragments of hemorrhagic soft tissue mixed with mucoid tissue that in aggregate measure 5 x 3 x 0.3 cm. The entire specimen is submitted in two cassettes. / SJ:renuka 12/26/19 TC:5 CPT: 11195
[2019-12-23 14:41] LABS: Hematocrit 41.3 % (37-47); Hemoglobin 12.9 g/dL (12.0-15.0); Mean Corp Hgb Conc 31.2 g/dL (32-36); Mean Corpuscular Hgb 26.3 pg (27.0-32.0); Mean Corpuscular Volume 84.3 fL (81-99); Mean Platelet Vol. 9.6 fl (6.2-12.0); Platelet Count 351 K/mm3 (150-450); RBC Distribution Width CV 14.8 % (11.6-14.6); RBC Distribution Width SD 45.9 fl (35.1-43.9); White Blood Count 9.1 K/mm3 (4.4-11.0)
[2019-12-23 15:05] LABS: hCG Titer Quant., Serum < 1 mIU/mL (1-3)
[2019-12-23 15:09] LABS: Follicle Stimulating Hormone 5.3 mIU/mL; Luteinizing Hormone 0.6 mIU/mL; Prolactin 10.3 ng/mL; Thyroid Stim Hormone (TSH) 1.51 uIU/mL (0.358-3.74)
[2019-12-27 14:57] LABS: HPV Reflexed? NOT INDICATED
== END ==
PROVIDERS: PCP Family Medicine; Visit Provider Student in an Organized Health Care Education/Training Program
DX: Z12.4 Encounter for screening for malignant neoplasm of cervix (principal); N93.9 Abnormal uterine and vaginal bleeding, unspecified
CPT/HCPCS: 36415; 83001; 83002; 84146; 84443; 84702; 85027; 88175; 88305; G0145

== ENCOUNTER 2022-11-24 17:14 | Emergency (ER) | payer MEDICAID, SELFPAY ==
[2022-11-24 17:17] VITALS: BP 145/101; PULSE 138; RESP 20; TEMP 36.2; O2SAT 98; BMI 34.2
--- NOTE | 2022-11-24 17:22 | ED.VIS.FEGU ---
HPI HPI - Female History of Present Illness Chief Complaint: Flank Pain PFSH PFS Medical History Alcohol abuse Depression Medical History no medical history Home Medications buspirone 15 mg tablet 30 mg PO DAILY depression 12/15/17 [History Last Taken 08/29/19 08:00] omeprazole 40 mg capsule,delayed release 40 mg PO DAILY heartburn 08/15/19 [History Last Taken 08/29/19 08:00] vits,calcium no.78-iron fumarate-folic acid 29 mg-1 mg tablet 1 tab PO DAILY 08/15/19 [History Last Taken 08/29/19 0800] docusate sodium 100 mg capsule 100 mg PO BID PRN PRN Constipation #60 caps 08/31/19 [Rx Last Taken Unknown] lamotrigine 200 mg tablet 200 mg PO 11/24/22 [History Last Taken Unknown] ondansetron 4 mg disintegrating tablet 4 mg PO Q8H PRN nausea and vomiting 3 days #9 tabs 11/24/22 [Rx Last Taken Unknown] venlafaxine 150 mg capsule,extended release 24 hr 150 mg PO 11/24/22 [History Last Taken Unknown] Allergy/AdvReac Type Severity Reaction Status Date / Time No Known Allergies Allergy Verified 11/24/22 17:17 Social History Smoking Status: Former smoker EXAM Physical Exam Const Vital Signs: 11/24/22 17:17 11/24/22 19:15 Temperature 97.1 F L Temperature Source Temporal Pulse Rate 138 H 90 Respiratory Rate 20 H 13 Blood Pressure 145/101 H 137/87 H Blood Pressure Mean 115 103 Pulse Ox 98 99 Oxygen Delivery Method Room Air Room Air MDM MDM MDM Narrative Medical decision making narrative: HISTORY OF PRESENT ILLNESS: 32-year-old female here for right-sided flank pain for 1 week. Pain comes and goes. She further states it is not associated with urinating. Denies any history abdominal surgeries. No history of nephrolithiasis. Denies any nausea or vomiting. Denies any urinary complaints. Denies any hematuria. Denies any vaginal bleeding or discharge. Denies any diarrhea or constipation. Denies any chest pain or shortness of breath Notes she drinks approxione fifth handle of vodka a day. States her last drink was just prior to arrival. States he has no plans of quitting. States she is not interested in detoxification at this time. REVIEW OF SYSTEMS: Pertinent positives: Right flank pain Pertinent negatives: Chest pain, shortness breath, urinary symptoms, nausea, vomiting, vaginal symptoms, change in bowel or bladder habits PHYSICAL EXAM: Nursing triage notes reviewed, Vital signs reviewed Constitutional: please see mdm HENT: MMM Eyes: Pupils equal round and reactive to light, Extraocular muscles intact Neck: No stridor, no JVD, full neck ROM Lungs: Clear to auscultation, No wheezing or rales. No increased work of breathing, no conversational dyspnea, no accessory muscle use, no nasal flaring. No respiratory distress noted Heart: Regular rate and rhythm, No murmurs, No rubs and No gallops, 2+ distal pulses (radial, femoral, posterior tibial) in all extremities Abdomen: Soft, there is no tenderness, rigidity, rebound or guarding, no obvious peritoneal signs, no palpable pulsatile abdominal masses, no auscultated abdominal bruit : No CVAT Extremities: No edema Neuro: No focal neurological deficits, cranial nerves II through XII intact, 5/5 strength in all extremities. Intact sensation to light touch in all extremities, 2+ reflexes bilateral patella tendons. Normal gait. No ataxia. Skin: No rash or lesions noted MEDICAL DECISION MAKING: Chief Complaint: Flank pain External records reviewed: Prior ED notes reviewed: No recent ED visits. Baseline tachycardia noted Factors affecting care: GERD, sinus tachycardia Social determinants of health: Former smoker History obtained from others: none Consults: none [facility] Narrative: Patient was initially hypertensive, tachycardic and tachypneic she was afebrile. Exam without CVA tenderness, no upper quadrant tenderness or Mcnamara sign. I considered the following differential diagnosis: Early alcohol withdrawal, nephrolithiasis, gallbladder pathology, liver abnormalities, I treated the patient with 1 L normal saline, Toradol, thiamine ALL IMAGES (IF OBTAINED) HAVE BEEN PERSONALLY REVIEWED AND INTERPRETED BY MYSELF. CBC without leukocytosis, severe anemia, no thrombocytopenia. BMP without evidence of significant electrolyte abnormalities, no anion gap, no acute kidney injury. LFTs without evidence of significant obstruction however there is elevation in liver enzymes and alcohol-induced pattern Lipase elevated consistent with likely alcohol induced pancreatic inflammation Urinalysis shows no evidence of urinary inflammation suggestive of UTI Urine test is negative CT scan of the abdomen pelvis shows no evidence of nephrolithiasis or other intra-abdominal pathology The amalgamation of the patient's labs images showed no evidence of acute life-threatening etiology. After fluids, thiamine and anti-inflammatories the patient's vital signs improved. Offered Alcohol detox once again but patient denied. INstructed the patient to return ifi symptoms changed or worsened. Instructed patient to gradually decrease alcohol use as to not precipitate withdrawal. The patient and/or family, caregivers express understanding. The patient and/or family, caregivers agrees with the plan. Shared decision making: I will have a discussion with the patient and or visitors regarding risk/benefits of further testing or admission. They will be made aware of of the risk/benefits inherent in this decision they will be given the opportunity to voice understanding. Total critical care time today provided was at least 0 minutes. This excludes separately billable procedures. Critical care time (if documented) is secondary to the patient having high probability of clinically significant/life threatening deterioration in the patient's condition which required my urgent intervention. Impression: 1. Alcohol abuse 2. Tachycardia 3. Hypertension 4. Elevated liver enzymes 5. Elevated lipase 6. Flank pain Dispo: discharge Lab Data Labs: Laboratory Results - last 24 hr 11/24/22 17:43 WBC 6.4 RBC 4.57 Hgb 14.2 Hct 42.8 MCV 93.7 MCH 31.1 MCHC 33.2 RDW Std Deviation 43.1 RDW Coeff of Shadi 12.6 Plt Count 294 MPV 8.9 Immature Gran % (Auto) 0.500 Neut % (Auto) 58.8 Lymph % (Auto) 32.9 Spink % (Auto) 6.1 Eos % (Auto) 1.2 Baso % (Auto) 0.5 Absolute Neuts (auto) 3.8 Absolute Lymphs (auto) 2.12 Nucleated RBC % 0 Sodium 141 Potassium 3.6 Chloride 110 H Carbon Dioxide 22.0 Anion Gap 9 BUN 11 Creatinine 0.83 Estim Creat Clear Calc 76.25 Est GFR (MDRD) Af Amer 102 Est GFR (MDRD) Non-Af 84 BUN/Creatinine Ratio 13.3 Glucose 105 Calcium 9.2 Total Bilirubin 0.30 Direct Bilirubin 0.14 AST 51 H ALT 76 H Alkaline Phosphatase 85 Total Protein 8.8 H Albumin 4.4 Globulin 4.4 H Lipase 85 H Urine Color Yellow Urine Clarity Clear Urine pH 7.0 Ur Specific [place] 1.005 Urine Protein Negative Urine Glucose (UA) Normal Urine Ketones Negative Urine Occult Blood Negative Urine Nitrite Negative Urine Bilirubin Negative Urine Urobilinogen Normal Ur Leukocyte Esterase Negative Urine RBC 0 SEEN Urine WBC 0 SEEN Ur Squamous Epith Cells 0 SEEN Urine Bacteria 0 SEEN Urine Mucus 0 SEEN Urine Test Negative Radiography Diagnostic Testing: Clinical Impression(s) from Imaging Studies Abdomen/Pelvis CT 11/24/22 17:34 IMPRESSION: No acute process within the abdomen and pelvis. Specifically, no right-sided hydronephrosis or intrarenal stone. No urinary bladder calculus. Electronically Signed: Lola Thomas MD at 18:45 EDT , Discharge Plan Triage Chief Complaint: Flank Pain ED Provider: Raffy Osorio Dx/Rx/DC Orders Instructions: ED Flank Pain, Uncertain Cause Prescriptions: New ondansetron 4 mg tablet,disintegrating 4 mg PO Q8H PRN (Reason: nausea and vomiting) 3 Days Qty: 9 0RF No Action buspirone 15 MG tablet 30 mg PO DAILY omeprazole 40 MG capsule,delayed release(DR/EC) 40 mg PO DAILY vit,[id number] 1 TABLET tablet 1 tab PO DAILY docusate sodium 100 MG capsule 100 mg PO BID PRN PRN (Reason: Constipation) Qty: 60 1RF lamotrigine 200 mg tablet 200 mg PO venlafaxine 150 mg capsule,extended release 24hr 150 mg PO Primary Care Provider: Brandy Prado NP Referrals: Denis Staples MD [Non-Staff] - Activity Restrictions/Additional Instructions: Thank you for trusting us with your care today! Please take Tylenol (2 pills, 650 mg), ibuprofen (2 pills, 400 mg) every 6 hours as needed for pain and fever control. Please continue taking already prescribed omeprazole Please return to the emergency department if your symptoms change or worsen. Please drink plenty of oral fluids this includes Pedialyte, body armor or Gatorade. Please slowly decrease your alcohol use. Please do not abruptly stop drinking alcohol as this may precipitate life-threatening withdrawal. Please follow with your primary care physician for further outpatient evaluation and management. Disposition Disposition: Home, Self Care
--- NOTE | 2022-11-24 17:34 | CT_ITS ---
STUDY: CT ABDOMEN AND PELVIS WITHOUT CONTRAST REASON FOR EXAM: Female, 32 years old. right flank pain RADIATION DOSAGE (If Supplied By Facility): CTDIvol = ( 15.10 ) mGy, DLP = ( 773.32 ) mGycm TECHNIQUE: Transaxial images were obtained from the dome of the diaphragm to the symphysis pubis without oral contrast, and without intravenous contrast. Sagittal and coronal images were reconstructed. Individualized dose optimization techniques were used for this CT. COMPARISON: None. FINDINGS: The visualized lung bases are unremarkable. The visualized portions of the heart are within normal limits. Normal liver. Slightly over distended, otherwise normal gallbladder and extrahepatic biliary system. Normal spleen. Normal pancreas. Normal bilateral adrenal glands. Normal right kidney. Left lower renal pole low attenuation structure measuring 4.7 mm likely tiny angiomyolipoma versus simple cyst, most compatible with benign process. Otherwise normal left kidney. Normal visualized stomach. Normal small intestine. Normal colon. The appendix is visualized and appears normal. Normal abdominal aorta. Normal inferior vena cava. Normal retroperitoneum. Normal urinary bladder. Anteverted uterus. Tiny fat-containing umbilical hernia otherwise normal abdominal wall. Normal osseous structures. CT/Abdomen/Pelvis without Cont IMPRESSION: No acute process within the abdomen and pelvis. Specifically, no right-sided hydronephrosis or intrarenal stone. No urinary bladder calculus. Electronically Signed: Lola Thomas MD at 18:45 EDT ,
[2022-11-24] MEDS: Ketorolac 15 MG/ML Vial IV (17:38)
[2022-11-24] MEDS: 0.9% Normal Saline (1000mL) 1,000 ML 999 ML IV (17:38)
[2022-11-24 17:54] LABS: Bacteria 0 SEEN /hpf (None Seen); Mucous, Urine 0 SEEN /hpf (<or=2+); Red Blood Cells-Urine 0 SEEN /hpf (0-5); Squamous Epithelial Cells - UA 0 SEEN /hpf (5-10); White Blood Cells 0 SEEN /hpf (0-5)
[2022-11-24 17:57] LABS: Absolute Lymphocyte Count 2.12 X10^3/uL (0.83-4.51); Absolute Neutrophil Count 3.8 X10^3/uL (2.0-7.7); Basophil# 0.03 X10^3/uL; Basophil% 0.5 % (0-1); Color, Urine Yellow (Yellow); Eosinophil# 0.08 X10^3/uL; Eosinophils% 1.2 % (0-5); Glucose, Dipstick Normal (Normal); Hematocrit 42.8 % (37-47); Hemoglobin 14.2 g/dL (12.0-15.0); Ketone-Dipstick Negative (Negative); Leukocyte Esterase-Dipstick Negative /ul (Negative); Lymphocyte # 2.12 X10^3/ul (0.83-4.51); Lymphocyte % 32.9 % (19-41); Mean Corp Hgb Conc 33.2 g/dL (32-36); Mean Corpuscular Hgb 31.1 pg (27.0-32.0); Mean Corpuscular Volume 93.7 fL (81-99); Mean Platelet Vol. 8.9 fl (6.2-12.0); Monocyte# 0.39 X10^3/uL; Monocyte% 6.1 % (0-10); NRBC Flagged by Analyzer 0 % (0-5); Neutrophil # 3.79 X10^3/uL (2.7-7.7); Neutrophil % 58.8 % (47-70); Nitrite-Dipstick Negative (Negative); Occult Blood-Urine Negative /ul (Negative); Platelet Count 294 K/mm3 (150-450); Protein-Dipstick Negative (Negative); RBC Distribution Width CV 12.6 % (11.6-14.6); RBC Distribution Width SD 43.1 fl (35.1-43.9); Red Blood Count 4.57 M/mm3 (4.2-5.4); Specific Gravity, Urine 1.005 (1.002-1.030); Urine Bilirubin Dipstick Negative (Negative); Urine Clarity Clear (Clear); Urine Urobilinogen Normal (Normal); White Blood Count 6.4 K/mm3 (4.4-11.0)
[2022-11-24 18:03] LABS: Internal QC Validated? YES +Cl - CLEAR BKGD; Pregnancy, Urine Negative Negative
[2022-11-24 18:13] LABS: Anion Gap 9 (5-15); BUN 11 mg/dL (7-18); BUN/Creat Ratio 13.3 RATIO (10-20); Calcium,Total 9.2 mg/dL (8.5-10.1); Chloride 110 mmol/L (98-107); Creatinine, Serum 0.83 mg/dL (0.55-1.02); EST Glomerular Filtration Rate 84 mL/min (>60); Est Glom Filt Rate - Afr Amer 102 mL/min (>60); Estimated Creatinine Clearance 76.25 ml/min; Glucose 105 mg/dL (74-106); Lipase 85 U/L (13-75); Potassium 3.6 mmol/L (3.5-5.1); Sodium Level 141 mmol/L (136-145)
[2022-11-24 18:15] LABS: AST(SGOT) 51 U/L (15-37); Alanine Aminotransfer ALT/SGPT 76 U/L (13-56); Albumin, Serum 4.4 g/dL (3.2-5.0); Alkaline Phosphatase 85 U/L (45-117); Bilirubin, Direct 0.14 mg/dL (0.00-0.30); Globulin 4.4 g/dL (2.2-4.2); Protein, Total 8.8 g/dL (6.4-8.2)
[2022-11-24] MEDS: Thiamine Hydrochloride 100 MG Tablet PO (18:31)
[2022-11-24 19:15] VITALS: BP 137/87; PULSE 90; RESP 13; O2SAT 99
== END 2022-11-24 19:46 | disposition home or self-care (01) ==
PROVIDERS: Emergency Provider Emergency Medicine; PCP Nurse Practitioner Family; Visit Provider Emergency Medicine
DX: R10.9 Unspecified abdominal pain (principal); F10.10 Alcohol abuse, uncomplicated; I10 Essential (primary) hypertension; K21.9 Gastro-esophageal reflux disease without esophagitis; Z87.891 Personal history of nicotine dependence; R74.8 Abnormal levels of other serum enzymes; F32.A Depression, unspecified; Z79.899 Other long term (current) drug therapy; R00.0 Tachycardia, unspecified
CPT/HCPCS: 74176; 80048; 80076; 81001; 81025; 83690; 85025; 99284; A4216

== ENCOUNTER 2023-12-10 09:19 | Emergency (ER) | payer MEDICAID, SELFPAY ==
[2023-12-10 09:19] VITALS: BP 150/115; BP 167/108; PULSE 97; PULSE 98; RESP 16; RESP 18; TEMP 36.3; O2SAT 98; O2SAT 99; BMI 34.7
--- NOTE | 2023-12-10 09:25 | RAD_ITS ---
STUDY: X-RAY - LEFT ANKLE REASON FOR EXAM: Female, 33 years old. FALL TECHNIQUE: 3 view(s) of the ankle. COMPARISON: Comparison is made with prior study dated December 24, 2017. FINDINGS: The patient is status post ORIF of the distal fibula and medial malleolus. Stable examination. Normal tibiotalar articulation and ankle mortise. Normal visualized talus and calcaneus. The visualized subtalar, talonavicular, calcaneocuboid and tarsal articulations are normal. The soft tissue structures are unremarkable. RAD/Ankle min 3 Views IMPRESSION: Status post ORIF of the distal fibula and the medial malleolus of the distal tibia. No acute fracture seen. Electronically Signed: Ray Church MD at 10:16 EDT ,
[2023-12-10 10:48] VITALS: BP 142/88; PULSE 90; RESP 16; TEMP 36.3; O2SAT 99
--- OUTSIDE RECORDS SUMMARY | 2023-12-10 11:02 | XMS RPT_ITS | CCD ---
Author Organization [facility] Inform ion Partnership [employer] [facility] Care Team Providers Care Nailhead Puncher Name Role Phone Angelo Juarez MD Primary Care Provider Unavailable Primary Care Provider NGOZI Kerr Attending Unavailable Medications Current Medications Medication Drug Class(es) Dates Sig (Normalized) Sig (Original) busPIRone hydrochloride 15 mg oral tablet (4 sources) Start: 3 busPIRone (BUSPAR) 15 mg tablet lamoTRIgine 200 mg oral tablet (4 sources) Mood Stabilizer, Anti-epilepti c Agent Start: 3 lamoTRIgine (LAMICTAL) 200 mg tablet 1 ml medroxyPROGESTERone acetate 150 mg/ml prefilled syringe (10 sources) Progestin Start: 4 End: 4 medroxyPROGESTERone (DEPO-PROVERA) 150 mg/mL Indications: Surveillance for Depo-Provera contraception INJECT THE CONTENTS OF 1 SYRINGE INTRMUSCLARLY EVERY 12 WEEKS 1 mL 3 07/14/2023 Active Start: 07-10-2022 End: 06-11-2023 medroxyPROGESTERone 150 mg i njection (DEPO-PROVERA) Start: 07-10-2022 End: 07-14-2023 medroxyPROGESTERone (DEPO-AK OVERA) 150 mg/mL injection Indications: Surveillance for Depo-Provera contraception Inject 1 mL intramuscularly every 12 weeks. 1 mL 3 07/10/2022 07/14/2023 Discontinued Comment on above: Inject 1 mL intramus cularly every 12 weeks. omeprazole 40 mg delayed release oral capsule (4 sources) Proton Pump Inhibitor Start: 06-05-2022 omeprazole (PRILOSEC) 40 mg capsule traZODone hydrochloride 50 mg oral tablet (4 sources) Serotonin Reuptake Inhibitor Start: 06-05-2022 traZODone (DESYREL) 50 mg tablet Completed/Discontinued Medications Medication Drug Class(es) Dates Sig (Normalized) Sig (Original) 24 hr venlafaxine 150 mg extended release oral capsule (4 sources) Serotonin and Norepinephrine Reuptake Inhibitor Start: 06-05-2022 End: 07-14-2023 venlafaxine ER (EFFEXOR XR) 150 mg 24 hr capsule Problems Active Problems Problem Classification Problem Date Documented Da te Episodic/Chronic Anxiety disorders (8 sources) Mixed anxiety and depressive disorder; Translations: [Other specified anxiety disorders] Onset: 06-13-2014 06-13-2014 Chronic Contraceptive and procreative management (2 sources) Patient encounter status; Translations: [Encounter for surveillance of injectable contraceptive] 06-16-2023 Episodic Past or Other Problems Problem Classification Problem Date Documented Date Episodic/Chronic Attention-deficit, conduct, and disruptive behavior disorders (4 sources) Attention deficit hyperactivity disorder, combined type; Translations: [Attention-deficit hyperactivity disorder, combined type] Onset: 06-13-2014 Resolved: 07-14-2023 06-13-2014 Chronic Results Test Name Value Interpretation Reference Range Facility [facility] 07-14-2023 CNOV Office Visit (OBGYWM ) -------- AMADOR RIOS ([id number]) 1990 F [facility] Date Time Provider Department 07/14/23 3:30 PM NGOZI BEY OBGYWM During your visit today, we recorded the following information about you: Blood pressure Weight Height 130/78 90.5 kg 1.562 m Ngozi Bey APRN.CNP 07/14/2023 3:44 PM Signed Commercial Title Examiner offered: Matt Joseph is a 32 year old who presents for an annual gynecologic exam without complaints. Menses: some spotting right before next shot. Contraception: Depo Provera HPV vaccine: No Last Pap: 07/18/2022 normal HPV: 07/12/2022 negative History of abnormal pap: Yes LEEP unsure of year but normal Pap since then Last mammogram: never Sexually active: Yes Patient concerns for STD exposure: No. Pain with intercourse: No Postcoital bleeding: No OB History T0 L1 SAB0 IAB0 Ectopic0 Multiple0 Live Births0 Sheltered Workshop Worker History LMP: Injection Age at Menarche: Age at First : Age at Menopause: Sheltered Workshop Worker History Comments: Sexual Activity: Yes; Male Contraception: Injection PAST MEDICAL HISTORY Diagnosis Date Acid reflux Depression Generalized anxiety disorder PAST SURGICAL HISTORY Procedure Laterality Date ANKLE SURGERY HX Left 2019 CERVIX UTERI CONIZA LP ELCTRO EXCI age 20's DELIVERY ONLY 2020 FAMILY HISTORY Problem Relation Age of Onset Hypertension Mother Hypertension Sister Hypertension Maternal Grandmother SOCIAL HISTORY Social History Tobacco Use Smoking status: Former Types: Cigarettes Passive exposure: Never Smokeless tobacco: Never Vaping Use Vaping Use: Never used Substance Use Topics Alcohol use: Not Currently Drug use: Never REVIEW OF SYSTEMS Abdomen: No abdominal pain, nausea, vomiting, diarrhea, or constipation. No bloating, early satiety, indigestion, or increased flatulence. Bladder: No dysuria, gross hematuria, urinary frequency, urinary urgency, or incontinence. Breast: No breast lumps, nipple d/c, overlying skin changes, redness or skin retraction. Allergies and current medication updated:Yes EXAM: Ht 5' 1.5 (1.56m) Wt 199 lb 9.6 oz (90.5kg) BMI 37.11 kg/(m2). GENERAL: pleasant, female in no apparent distress HEENT: Normocephalic, atraumatic, mucus membranes moist, and no lesions NECK: Supple, full range of motion, no adenopathy, and thyroid normal DERMATOLOGY: Normal, without lesions, non-icteric, and non-hirsute BREAST: soft, non-tender, symmetric, no dominant mass, normal nipple-areolar complex, no lymphadenopathy, and no nipple discharge CHEST: Normal inspiratory effort ABDOMEN: soft, non-tender, and no masses PELVIC: external genitalia normal, normal Bartholin's glands, urethra, [place]'s glands, no vulvar lesions, no cervical lesions, physiologic discharge present, normal appearing perineal body and perianal region BIMANUAL: uterus normal size, shape and consistency, no adnexal masses, and non-tender RECTOVAGINAL: deferred. NEURO: alert and oriented x3,exam grossly non-focal EXTREMITIES: normal ASSESSMENT/PLAN: 1) Health maintenance: Pap/HPV up to date. Mammogram starting age 40. Nutrition, exercise and routine health maintenance exams reviewed. Calcium/Vitamin D supplementation information provided. 2) Contraception: Depo Provera. Contraceptive options reviewed and information provided. 3) STD screening: Declined STD check. 4) Follow up one year or sooner as needed Ngozi Bey APRN.CNP Allergies As of Date: 07/14/2023 (No Known Allergies) Date Reviewed: 07/14/2023 Reviewed by: Ngozi Bey APRN.REINFORCED IRONWORKER - Fully Assessed Reason for Visit: Yearly Exam [187] Primary Visit Diagnosis:Encounter for gynecological examination (general) (routine) without abnormal findings [Z01.419] Other Visit Diagnosis:Surveillance for Depo-Provera contraception [Z30.42] Order(s):medroxyPROGESTE Khalif (DEPO-PROVERA) 150 mg/mLINJECT THE CONTENTS OF 1 SYRINGE INTRMUSCLARLY EVERY 12 WEEKSDisp: 1 mLRfl: 3 Prescriptions as of 07/14/2023 - medroxyPROGESTERone (DEPO-PROVERA) 150 mg/mL INJECT THE CONTENTS OF 1 SYRINGE INTRMUSCLARLY EVERY 12 WEEKS - busPIRone (BUSPAR) 15 mg tablet - lamoTRIgine (LAMICTAL) 200 mg tablet - traZODone (DESYREL) 50 mg tablet - omeprazole (PRILOSEC) 40 mg capsule Problem List As Of Date 07/14/2023 Noted Resolved Depression with anxiety [F41.8] 06/13/2014 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 Normal [facility] Asha 11-25-2022 DELVIS Telephone (OBGYWM) -------- AMADOR RIOS ([id number]) 1990 [facility] Date Time Provider Department 11/25/22 BRANDY PRADO OBMARIA TWMacey During your visit today, we recorded the following information about you: Brandy Prado APRN.CNP 11/25/2022 1:00 PM Signed 11/24/2022 [facility] ED records sent to me because she listed me as her PCP - forwarded to Dr Juarez since he is her PCP. Brandy Prado APRN.Amador Vila LPN 11/25/2022 1:22 PM Signed Noted. Amador Guerrero LPN ' Allergies As of Date: 11/25/2022 (No Known Allergies) Date Reviewed: 07/10/2022 Reviewed by: Brandy Prado APRN.REINFORCED IRONWORKER - Fully Assessed Reason for Visit: Received Outside Medical Records [[id number]] Cmt: 11/24/2022 [facility] ED records Prescriptions as of 11/25/2022 - busPIRone (BUSPAR) 15 mg tablet - lamoTRIgine (LAMICTAL) 200 mg tablet - medroxyPROGESTERone (DEPO-PROVERA) 150 mg/mL injection Inject 1 mL intramuscularly every 12 weeks. 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 A Negative (NOT DETECTED) result does not preclude 2019-nCoV infection since the adequacy of sample collection and/or low viral burden may result in presence of viral nucleic acids below the clinical sensitivity of this test method. Negative (NOT DETECTED) result should not be used as the sole basis for treatment or other patient management decisions. Rather negative results should be combined with clinical observations, patient history, and epidemiological information to make patient management decisions. Fact sheet for providers: https://www.fda.gov/media/821997/download Fact sheet for patients: https://www.fda.gov/media/132609/download This test has received FDA Emergency Use Authorization (EUA) and has been verified by [facility] ([facility]). This test is only authorized for the duration of time that circumstances exist to justify the authorization of the emergency use of in vitro diagnostic tests for the detection of SARS-CoV-2 virus and/or diagnosis of COVID-19 infection under section 564(b)(1) of the Act, 21 U.S.C. 360bbb-3(b)(1), unless the authorization is terminated or revoked sooner. [facility] ([facility]) is certified under CLIA-88 as qualified to perform high complexity testing. This tests analytical performance characteristics have been determined by [facility]. Testing is performed at [facility] is located at [address] [place] [address] (CLIA License #[id number], CAP #[id number]). Performed By: #### [facility] #### [facility] [address] [place] [address] Lab Specimen Source Nasal, Nasopharyngeal Normal [facility] Comment on above: Performed By: #### [facility] #### [facility] [address] [place] [address] Vital Signs Date Time Vital Sign Value Performing Clinician Rebel zhou 07-14-2023 15:25-0400 Body height 156.2 cm Ngozi Maida UTILIZATION SPECIALIST.REINFORCED IRONWORKER Work Phone: [facility] 07-14-2023 15:25-0400 Body mass index (BMI) [Ratio] 37.1 kg/m2 Ngozi Maida UTILIZATION SPECIALIST.REINFORCED IRONWORKER Work Phone: [facility] 07-14-2023 15:25-0400 Body weight 90.54 kg Ngozi Maida UTILIZATION SPECIALIST.REINFORCED IRONWORKER Work Phone: [facility] 07-14-2023 15:25-0400 Diastolic blood pressure 78 mm[Hg] Ngozi Maida UTILIZATION SPECIALIST.REINFORCED IRONWORKER Work Phone: [facility] 07-14-2023 15:25-0400 Systolic blood pressure 130 mm[Hg] Ngozi Counselor UTILIZATION SPECIALIST.REINFORCED IRONWORKER Work Phone: [facility] Encounters Encounter Date Encounter Type Care Provider Facility Start: 07-14-2023 End: 07-14-2023 ambulatory NGOZI MAIDA Facility:[facility] Start: 07-14-2023 End: 07-14-2023 Patient encounter procedure Ngozi Maida UTILIZATION SPECIALIST.REINFORCED IRONWORKER Work Phone: OB/Gynecology Comment on above: Encounter for gyneco logical examination (general) (routine) without abnormal findings (Primary Dx); Surveillance for Depo-Provera contraception Start: 07-14-2023 End: 07-14-2023 Patient encounter status Ngozi Counselor UTILIZATION SPECIALIST.REINFORCED IRONWORKER Work Phone: [facility] Start: 06-15-2023 ambulatory Brandy RIVERA RN.REINFORCED IRONWORKER Work Phone: OB/Gynecology Comment on above: Prescription Start: 08-05-2022 ambulatory Brandy RIVERA RN.REINFORCED IRONWORKER Work Phone: OB/Gynecology Comment on above: Question regarding P T ED OBSTETRICS & GYNECOLOGY Start: 07-18-2022 ambulatory Brandy Prado AP RN.REINFORCED IRONWORKER Work Phone: OB/Gynecology Comment on above: Question regarding H EP B SURF AB QUANT Plan of Treatment Date Care Activity Detail Author Start: 07-11-2027 HPV TESTING HPV TESTING [facility] Start: 07-11-2027 PAP TESTING PAP TESTING [facility] Start: 07-11-2027 Screening for malign ant neoplasm of cervix [facility] Start: 07-14-2024 End: 07-14-2024 Patient encounter procedure 07/14/2024 4:00 PM EDT Office Visit OB/Gynecology [address] [place] [address] Ngozi Bey, UTILIZATION SPECIALIST.REINFORCED IRONWORKER [address] [place] [address] Annual OB/Gynecology Comment on above: Annual Start: 07-14-2023 End: 07-14-2023 Patient encounter procedure 07/14/2023 3:30 PM EDT Office Visit OB/Gynecology [address] [place] [address] Ngozi Bey, UTILIZATION SPECIALIST.REINFORCED IRONWORKER [address] [place] [address] Annual Exam OB/Gynecology Comment on above: Annual Exam Start: 10-17-2022 Covid-19 Vaccine ( season) Covid-19 Vaccine () [facility] Start: 2008 Hepatitis B Vaccine (1 of 3 - 19+ 3-dose series) Hepatitis B Vaccine (1 of 3 - 19+ 3-dose series) [facility] Start: 2008 Urine microalbumin profile [facility] Start: 09-03-2007 HEPATITIS C SCREENING HEPATITIS C [facility] Start: 09-03-2007 Hepatitis C screening Hepatitis C [facility] Start: 09-03-2007 HIV SCREENING HIV SCREENING [facility] Start: 09-03-2007 HIV screening HIV Screening [facility] Start: 03-05-1990 COVID-19 VACCINE (#1) COVID-19 VACCI NE (#1) [facility] Start: 1990 HEPATITIS B (1 of 3 - 3-dose series) HEPATITIS B (1 of 3 - 3-dose series) [facility] Immunizations Immunization Date Immunization Notes Care Provider Joi mcgee 12-11-2021 influenza virus vacc ine, unspecified formulation Brandy Prado APRN.[facility] Work Phone: [facility] Payers Date Payer Category Payer Medicaid [id number] 2022 Medicaid [id number] Social History Date Type Detail Facility Start: 07-10-2022 End: 07-14-2023 Tobacco smoking status NHIS Ex-smoker [facility] Work Phone: History of tobacco use Current smoker [facility] Work Phone: History of tobacco use Cigarette Smoker [facility] Work Phone: Start: 07-10-2022 End: 07-14-2023 Tobacco use and exposure Smokeless tobacco non-user [facility] Work Phone: Start: 07-10-2022 End: 07-14-2023 Alcohol intake Ex-drinker (finding) [facility] Start: 1990 Sex Assigned At Not on file C [facility] Start: 07-09-2022 End: 09-05-2022 History of Social function [facility] Start: 07-09-2022 End: 09-05-2022 Social connection and isolation panel [facility] Do you belong to any clubs or organizations such as protestant groups, unions, fraternal or athletic groups, or school groups? No [facility] Are you now , , , , never or living with a partner? Never [facility] How often to you hav e a drink containing alcohol? 2-3 time sa week [facility] How many standard dr inks containing alcohol do you have on a typical day? 3 or 4 [facility] How often do you hav e 6 or more drinks on 1 occasion? Monthly [facility] How hard is it for y ou to pay for the very basics like food, housing, medical care, and heating Not hard at all [facility] Do you feel stress - tense, restless, nervous, or anxious, or unable to sleep at night because your mind is troubled all the time - these days [OSQ] Not at all [facility] (I/We) worried wheth er (my/our) food would run out before (I/we) got money to buy more. Never true [facility] Start: 07-14-2023 Education 13 [facility] NEGATED: Highlighted rowStart: GENO History of tobacco use Passive smoker [facility] Progress note 07-14-2023 Note Date & Type Note Facility 07-14-2023 Note HNO ID: [id number] Author: NGOZI BEY APRN.REINFORCED IRONWORKER Service: ? Author Type: Nurse Practitioner Type: Progress Notes Filed: 07/14/2023 15:44 Note Text: Commercial Title Examiner offered: Patient declinesPaulino Joseph is a 32 year old who presents for an annual gynecologic exam without complaints. Menses: some spotting right before next shot. Contraception: Depo Provera HPV vaccine: No Last Pap: 07/18/2022 normal HPV: 07/12/2022 negative History of abnormal pap: Yes LEEP unsure of year but normal Pap since then Last mammogram: never Sexually active: Yes Patient concerns for STD exposure: No. Pain with intercourse: No Postcoital bleeding: No OB History T0 L1 SAB0 IAB0 Ectopic0 Multiple0 Live Births0 Sheltered Workshop Worker History LMP: Injection Age at Menarche: Age at First : Age at Menopause: Sheltered Workshop Worker History Comments: Sexual Activity: Yes; Male Contraception: Injection PAST MEDICAL HISTORY Diagnosis Date Acid reflux Depression Generalized anxiety disorder PAST SURGICAL HISTORY Procedure Laterality Date ANKLE SURGERY HX Left 2019 CERVIX UTERI CONIZA LP ELCTRO EXCI age 20's DELIVERY ONLY 2020 FAMILY HISTORY Problem Relation Age of Onset Hypertension Mother Hypertension Sister Hypertension Maternal Grandmother SOCIAL HISTORY Social History Tobacco Use Smoking status: Former Types: Cigarettes Passive exposure: Never Smokeless tobacco: Never Vaping Use Vaping Use: Never used Substance Use Topics Alcohol use: Not Currently Drug use: Never REVIEW OF SYSTEMS Abdomen: No abdominal pain, nausea, vomiting, diarrhea, or constipation. No bloating, early satiety, indigestion, or increased flatulence. Bladder: No dysuria, gross hematuria, urinary frequency, urinary urgency, or incontinence. Breast: No breast lumps, nipple d/c, overlying skin changes, redness or skin retraction. Allergies and current medication updated:Yes EXAM: Ht 5' 1.5 (1.56m) Wt 199 lb 9.6 oz (90.5kg) BMI 37.11 kg/(m2). GENERAL: pleasant, female in no apparent distress HEENT: Normocephalic, atraumatic, mucus membranes moist, and no lesions NECK: Supple, full range of motion, no adenopathy, and thyroid normal DERMATOLOGY: Normal, without lesions, non-icteric, and non-hirsute BREAST: soft, non-tender, symmetric, no dominant mass, normal nipple-areolar complex, no lymphadenopathy, and no nipple discharge CHEST: Normal inspiratory effort ABDOMEN: soft, non-tender, and no masses PELVIC: external genitalia normal, normal Bartholin's glands, urethra, [place]'s glands, no vulvar lesions, no cervical lesions, physiologic discharge present, normal appearing perineal body and perianal region BIMANUAL: uterus normal size, shape and consistency, no adnexal masses, and non-tender RECTOVAGINAL: deferred. NEURO: alert and oriented x3,exam grossly non-focal EXTREMITIES: normal ASSESSMENT/PLAN: 1) Health maintenance: Pap/HPV up to date. Mammogram starting age 40. Nutrition, exercise and routine health maintenance exams reviewed. Calcium/Vitamin D supplementation information provided. 2) Contraception: Depo Provera. Contraceptive options reviewed and information provided. 3) STD screening: Declined STD check. 4) Follow up one year or sooner as needed Ngozi Bey APRN.[place] [facility] History of Present illness Narrative 07-14-2023 Ngozi Bey APRN.[place] - 07/14/2023 3:25 PM EDT Note Date & Type Note Facility 07-14-2023 History of Presen t illness Narrative Commercial Title Examiner offered: Patient declines. Opal is a 32 year old who presents for an annual gynecologic exam without complaints. Menses: some spotting right before next shot. Contraception: Depo Provera HPV vaccine: No Last Pap: 07/18/2022 normal HPV: 07/12/2022 negative History of abnormal pap: Yes LEEP unsure of year but normal Pap since then Last mammogram: never Sexually active: Yes Patient concerns for STD exposure: No. Pain with intercourse: No Postcoital bleeding: No OB History T0 L1 SAB0 IAB0 Ectopic0 Multiple0 Live Births0 Sheltered Workshop Worker History LMP: Injection Age at Menarche: Age at First : Age at Menopause: Sheltered Workshop Worker History Comments: Sexual Activity: Yes; Male Contraception: Injection PAST MEDICAL HISTORY Diagnosis Date Acid reflux Depression Generalized anxiety disorder PAST SURGICAL HISTORY Procedure Laterality Date ANKLE SURGERY HX Left 2019 CERVIX UTERI CONIZA LP ELCTRO EXCI age 20's DELIVERY ONLY 2020 FAMILY HISTORY Problem Relation Age of Onset Hypertension Mother Hypertension Sister Hypertension Maternal Grandmother SOCIAL HISTORY Social History Tobacco Use Smoking status: Former Types: Cigarettes Passive exposure: Never Smokeless tobacco: Never Vaping Use Vaping Use: Never used Substance Use Topics Alcohol use: Not Currently Drug use: Never REVIEW OF SYSTEMS Abdomen: No abdominal pain, nausea, vomiting, diarrhea, or constipation. No bloating, early satiety, indigestion, or increased flatulence. Bladder: No dysuria, gross hematuria, urinary frequency, urinary urgency, or incontinence. Breast: No breast lumps, nipple d/c, overlying skin changes, redness or skin retraction. Allergies and current medication updated:Yes EXAM: Ht 5' 1.5 (1.56m) Wt 199 lb 9.6 oz (90.5kg) BMI 37.11 kg/(m^2). GENERAL: pleasant, female in no apparent distress HEENT: Normocephalic, atraumatic, mucus membranes moist, and no lesions NECK: Supple, full range of motion, no adenopathy, and thyroid normal DERMATOLOGY: Normal, without lesions, non-icteric, and non-hirsute BREAST: soft, non-tender, symmetric, no dominant mass, normal nipple-areolar complex, no lymphadenopathy, and no nipple discharge CHEST: Normal inspiratory effort ABDOMEN: soft, non-tender, and no masses PELVIC: external genitalia normal, normal Bartholin's glands, urethra, [place]'s glands, no vulvar lesions, no cervical lesions, physiologic discharge present, normal appearing perineal body and perianal region BIMANUAL: uterus normal size, shape and consistency, no adnexal masses, and non-tender RECTOVAGINAL: deferred. NEURO: alert and oriented x3,exam grossly non-focal EXTREMITIES: normal ASSESSMENT/PLAN: 1) Health maintenance: Pap/HPV up to date. Mammogram starting age 40. Nutrition, exercise and routine health maintenance exams reviewed. Calcium/Vitamin D supplementation information provided. 2) Contraception: Depo Provera. Contraceptive options reviewed and information provided. 3) STD screening: Declined STD check. 4) Follow up one year or sooner as needed Ngozi Bey APRN.REINFORCED IRONWORKER documented in this encounter [facility] [facility] Telephone encounter Note 06-16-2023 Telephone Encounter - Karen Sanchez RN - 06/16/2023 9:11 AM EDT Note Date & Type Note Facility 06-16-2023 Telephone encount er Note Patient request for medication is as follows: Requested Prescriptions Pending Prescriptions Disp Refills medroxyPROGESTERone (DEPO-PROVERA) 150 mg/mL 1 mL 0 Last annual exam: 07/10/22 Please approve the above prescription(s) to electronically send to pharmacy. Karen Sanchez RN [facility] Note 06-16-2023 Telephone Encounter - Karen Sanchez RN - 06/16/2023 9:11 AM EDT Note Date & Type Note Facility 06-16-2023 Miscellaneous Notes Formattin g of this note is different from the original. Patient request for medication is as follows: Requested Prescriptions Pending Prescriptions Disp Refills medroxyPROGESTERone (DEPO-PROVERA) 150 mg/mL 1 mL 0 Last annual exam: 07/10/22 Please approve the above prescription(s) to electronically send to pharmacy. Karen Sanchez RN documented in this encounter [facility] Progress note 07-31-2022 Note Date & Type Note Facility 07-31-2022 Note HNO ID: [id number] Author: Salma Weinberg LPN Service: ? Author Type: ? Type: Progress Notes Filed: 07/31/2022 8:16 AM Note Text: The patient received injection of Depo provera. Dose: 150 mg Amount wasted: 0. Route: Intramuscular Site: left deltoid See MAR for medication administration documentation Patient brought medication The date due for the next injection is due in 12 weeks. Salma Weinberg LPN [facility] Evaluation note Note Date & Type Note Facility Evaluation note Diagnosis Surveillance for Depo-Provera contraception- Primary Surveillance of other previously prescribed contraceptive method documented in this encounter [facility] Evaluation note Note Date & Type Note Facility Evaluation note Diagnosis Encounter for gynecological examination (general) (routine) without abnormal findings- Primary Surveillance for Depo-Provera contraception Surveillance of other previously prescribed contraceptive method documented in this encounter [facility] Summary Purpose Family History No Family History Records FoundNo Family History Records Found Advance Directives No Advanced Directives Records FoundNo Advanced Directives Records Found Additional Source Comments INFORMATION SOURCE (unrecogn ized section and content) DATE CREATED AUTHOR 09/06/2019 [facility] DATE CREATED AUTHOR AUTHOR'S ORGANIZ ATION 07/15/2023 [facility] Source Comments (unrecognize d section and content) In the event this informatio n is protected by the Federal Confidentiality of Alcohol and Drug Abuse Patient Records regulations: The Federal rules restrict any use of the information to criminally investigate or prosecute any alcohol or drug abuse patient.[facility] the event this information is protected by the Federal Confidentiality of Alcohol and Drug Abuse Patient Records regulations: The Federal rules restrict any use of the information to criminally investigate or prosecute any alcohol or drug abuse patient.[facility] the event this information is protected by the Federal Confidentiality of Alcohol and Drug Abuse Patient Records regulations: The Federal rules restrict any use of the information to criminally investigate or prosecute any alcohol or drug abuse patient.[facility] the event this information is protected by the Federal Confidentiality of Alcohol and Drug Abuse Patient Records regulations: The Federal rules restrict any use of the information to criminally investigate or prosecute any alcohol or drug abuse patient.[facility] Care Teams (unrecognized sec tion and content) Nail[employer]cher Relationship Specialty Start Date End Date Angelo Juarez MD [address] [place] [address] PCP - General Family Medicine 07/16/22 Reason for Visit (unrecogniz ed section and content) Reason Comments Yearly Exam FOR RECORDS PERTAINING TO PATIENTS WHO ARE OR HAVE BEEN ENROLLED IN A CHEMICAL DEPENDENCY/SUBSTANCEABUSE PROGRAM, SOME INFORMATION MAY BE OMITTED. This clinical summary was aggregated from multiple sources. Caution should be exercised in using it in the provision of clinical care. This summary normalizes information from multiple sources, and as a consequence, information in this document may materially change the coding, format and clinical context of patient data. In addition, data may be omitted in some cases. CLINICAL DECISIONS SHOULD BE BASED ON THE PRIMARY CLINICAL RECORDS. [employer] [facility]. provides no warranty or guarantee of the accuracy or completeness of information in this document.
--- NOTE | 2023-12-10 13:47 | ED.VIS.LOWEX ---
HPI History of Present Illness Chief Complaint: Lower Extremity Injury Informant: patient Narrative Narrative: 33-year-old female presenting to the emergency room with left ankle injury. Patient states that she fell down the stairs a couple days ago. She has had prior ankle fracture with surgery. She notes pain mostly posteriorly. She has been able to ambulate with the support of a ankle brace. She tried to work today but noted to be painful PFSH PFS Medical History Anxiety Alcohol abuse Depression Home Medications ?Medication ?Instructions ?Recorded ?Last Taken ?Type trazodone 50 mg tablet 50 mg PO QHS 06/09/23 Unknown History buspirone 15 mg tablet 15 mg PO BID depression #180 tabs 08/17/23 Unknown Rx venlafaxine 150 mg 150 mg PO DAILY #90 caps 08/17/23 Unknown Rx capsule,extended release 24 hr lamotrigine 100 mg tablet 100 mg PO QDAY #90 tabs 10/12/23 Unknown Rx Allergy/AdvReac Type Severity Reaction Status Date / Time No Known Allergies Allergy Verified 12/10/23 09:20 Family History Other Alcoholism Anxiety Social History Smoking Status: Current every day smoker tobacco type: cigarettes alcohol intake: former substance use type: does not use ROS ROS ED Constitutional Constitutional ED: Denies chills or weight loss Eyes Eyes: Denies change in vision or diplopia ENT ENT ED: Denies ear pain, rhinorrhea or sore throat Cardiovascular Cardiovascular: Denies chest pain, orthopnea, palpitations or racing heartbeat Respiratory/Chest Respiratory/Chest: Denies cough, dyspnea or orthopnea Gastrointestinal Gastrointestinal: Denies abdominal pain, diarrhea, nausea or vomiting Genitourinary Genitourinary ED: Denies dysuria, hematuria or urinary frequency Musculoskeletal Musculoskeletal: Reports other Details: Posterior left ankle pain. ; Denies arthralgias or myalgias Integumentary Denies abscess or rash Neurologic Neurologic: Denies headache(s) or weakness Psychiatric Psychiatric: Denies anxiety, depression, suicidal ideation or suicidal thoughts Endocrine Endocrinology: Denies polydipsia, polyphagia or polyuria Allergic/Immunologic Allergic/Immunologic ED: Denies mouth swelling, tongue swelling or urticaria EXAM Physical Exam Const Vital Signs: 12/10/23 09:19 12/10/23 09:19 12/10/23 10:48 Temperature 97.3 F L 97.3 F L Temperature Source Temporal Pulse Rate 98 97 90 Respiratory Rate 18 16 16 Blood Pressure 150/115 H 167/108 H 142/88 H Blood Pressure Mean 126 127 106 Pulse Ox 98 99 99 Oxygen Delivery Method Room Air Room Air Positive well nourished and well developed General Appearance ED: well developed and NAD HEENT Reports normocephalic, head/scalp atraumatic and moist mucous membranes Eyes PERRL and EOMs intact bilaterally Neck no lymphadenopathy, supple and no JVD Resp normal respiratory effort and clear to auscultation bilaterally Cardio regular rate, regular rhythm and no murmurs GI normal to inspection, nondistended, normoactive bowel sounds and non-tender Palpation: soft Back/Spine no CVA tenderness and normal ROM Extremity Extremity Narrative: There is mild swelling posterior to the left ankle. The Achilles palpates and functionally appears intact. There is no fibular head tenderness. No tibial shaft pain. No medial or lateral malleoli or tenderness no fifth metatarsal pain. Neurovascular the patient appears intact General Extremety ED: Negative for edema General Extremity: Negative for edema Neuro oriented x3 and CN's II-XII intact bilaterally Sensorium / Orientation: alert Motor Exam: strength 5/5 throughout Psych mental status grossly normal Mood & Affect: Negative for depressed or tearful Skin no rashes or lesions noted and no wounds MDM MDM MDM Narrative Medical decision making narrative: Differential diagnosis includes but not limited to fracture dislocation ligamentous strain muscular injury tendon injury neurovascular injury surgical hardware injury My independent interpretation of the plain films of the left ankle is no acute fracture surgical hardware appears intact. The patient will be placed in a air splint. Follow-up 10 to 14 days if not improving the patient has seen [place] [facility] in the past. History & Record Review Discussion w/independent historian: Patient Radiography Diagnostic Testing: Clinical Impression(s) from Imaging Studies Ankle X-Ray 12/10/23 09:25 IMPRESSION: Status post ORIF of the distal fibula and the medial malleolus of the distal tibia. No acute fracture seen. Electronically Signed: Ray Church MD at 10:16 EDT , Discharge Plan Triage Chief Complaint: Lower Extremity Injury ED Provider: Mike Wagoner Dx/Rx/DC Orders Clinical Impression: Left ankle sprain, Fall Instructions: ED Ankle Sprain (Adult) Prescriptions: No Action trazodone 50 mg tablet 50 mg PO QHS buspirone 15 mg tablet 15 mg PO BID Qty: 180 1RF venlafaxine 150 mg capsule,extended release 24hr 150 mg PO DAILY Qty: 90 1RF lamotrigine 100 mg tablet 100 mg PO QDAY Qty: 90 1RF Primary Care Provider: Brandy Prado NP Referrals: Pantera Mederos DO [Med Staff - Active Staff] - 10-14 Days if not better Brandy Prado NP, [facility] [Primary Care Provider] - Print Language: Japanese Disposition Disposition: Home, Self Care Discharge Date/Time: 12/10/23 10:59
== END 2023-12-10 10:59 | disposition home or self-care (01) ==
PROVIDERS: Emergency Provider Emergency Medicine; PCP Nurse Practitioner Family; Visit Provider Emergency Medicine
DX: S93.402A Sprain of unspecified ligament of left ankle, initial encounter (principal); F17.210 Nicotine dependence, cigarettes, uncomplicated; Z98.890 Other specified postprocedural states; Z87.81 Personal history of (healed) traumatic fracture; W10.9XXA Fall (on) (from) unspecified stairs and steps, initial encounter
CPT/HCPCS: 73610; 99283